=== PATIENT | male | born 1975 | race American Indian/Alaskan Native ===

== ENCOUNTER 2018-06-14 09:02 | Emergency (ER) | payer SELFPAY ==
--- NOTE | 2018-06-14 11:09 | Emergency Department Report ---
ED Male HPI - General Chief complaint: Urogenital-Male Stated complaint: BLOOD IN URINE Time Seen by Provider: 06/14/18 10:40 Source: patient Mode of arrival: Ambulatory Limitations: No Limitations - History of Present Illness Initial comments: 43-year-old obese male with no known past medical history presents to the hospital complaining of blood in his urine since last night.He states that he was drinking alcohol and initially thought maybe he hurt his penis when trying to urinate. He denies any penile playing, abrasions, or bleeding from the penis. He had gross hematuria last night and a little bit this morning however , he states that urinating here he no longer sees blood. He denies flank pain, nausea, vomiting, fever, or dysuria. Patient presents his elevated blood pressure and hasn't seen a primary care doctor in several years. - Related Data Previous Rx's Medication Instructions Recorded Last Taken Type amLODIPine [Norvasc] 10 mg PO DAILY #30 tab 06/14/18 Unknown Rx Allergies Allergy/AdvReac Type Severity Reaction Status Date / Time No Known Allergies Allergy Unverified 06/14/18 09:41 ED Review of Systems ROS: Stated complaint: BLOOD IN URINE Other details as noted in HPI Comment: All other systems reviewed and negative ED Past Medical Hx - Past Medical History Previous Medical History?: No - Surgical History Past Surgical History?: No - Social History Smoking Status: Never Smoker Substance Use Type: Alcohol - Medications Home Medications: Home Medications Medication Instructions Recorded Confirmed Last Taken Type amLODIPine [Norvasc] 10 mg PO DAILY #30 tab 06/14/18 Unknown Rx ED Physical Exam - General Limitations: No Limitations - Other Other exam information: General: No limitations, patient is alert in no acute distress Head exam: Atraumatic, normocephalic Eyes exam: Normal appearance ENT: Moist mucous membrane, normal oropharynx Neck exam: Normal inspection, full range of motion, no meningismus nontender Respiratory exam: Clear to auscultation bilateral, no wheezes, rales, crackles Cardiovascular: Normal rate and rhythm, normal heart sounds Abdomen: Soft, nondistended, and nontender, with normal bowel sounds, no rebound, or guarding : Uncircumcised, no penile or for skin lesions. No blood at the meatus or penile discharge. No scrotal swelling. No testicular or epididymal tenderness Extremity: Full range of motion normal inspection no deformity Back: Normal Inspection, full range of motion, flanks nontender Neurologic: Alert, oriented x3, cranial nerves intact, no motor or sensory deficit Psychiatric: normal affect, normal mood Skin: Warm, dry, intact ED Course Vital Signs 06/14/18 06/14/18 06/14/18 09:41 11:11 11:19 Temperature 98.2 F Pulse Rate 109 H 104 H 104 H Respiratory 20 20 Rate Blood Pressure 171/98 167/103 Blood Pressure 167/103 [Left] O2 Sat by Pulse 99 99 Oximetry 06/14/18 06/14/18 06/14/18 13:52 13:55 14:30 Temperature Pulse Rate 94 H 94 H Respiratory 20 Rate Blood Pressure 175/111 Blood Pressure 175/111 164/106 [Left] O2 Sat by Pulse 99 Oximetry ED Medical Decision Making - Lab Data Result diagrams: 06/14/18 11:17 06/14/18 11:17 Lab Results 06/14/18 06/14/18 06/14/18 Range/Units 09:50 11:17 11:17 WBC 4.4 L (4.5-11.0) K/mm3 RBC 5.10 H (3.65-5.03) M/mm3 Hgb 15.8 H (11.8-15.2) gm/dl Hct 45.6 (35.5-45.6) % MCV 89 (84-94) fl MCH 31 (28-32) pg MCHC 35 H (32-34) % RDW 14.1 (13.2-15.2) % Plt Count 229 (140-440) K/mm3 Lymph % (Auto) 44.8 H (13.4-35.0) % [place] % (Auto) 12.3 H (0.0-7.3) % Eos % (Auto) 1.6 (0.0-4.3) % Baso % (Auto) 0.6 (0.0-1.8) % Lymph # 2.0 (1.2-5.4) K/mm3 [place] # 0.5 (0.0-0.8) K/mm3 Eos # 0.1 (0.0-0.4) K/mm3 Baso # 0.0 (0.0-0.1) K/mm3 Seg Neutrophils % 40.7 (40.0-70.0) % Seg Neutrophils # 1.8 (1.8-7.7) K/mm3 Sodium 141 (137-145) mmol/L Potassium 4.1 (3.6-5.0) mmol/L Chloride 102.5 (98-107) mmol/L Carbon Dioxide 27 (22-30) mmol/L Anion Gap 16 mmol/L BUN 8 L (9-20) mg/dL Creatinine 1.0 (0.8-1.5) mg/dL Estimated GFR > 60 ml/min BUN/Creatinine Ratio 8 % Glucose 125 H (75-100) mg/dL Calcium 8.6 (8.4-10.2) mg/dL Total Bilirubin 0.30 (0.1-1.2) mg/dL AST 31 (5-40) units/L ALT 39 (7-56) units/L Alkaline Phosphatase 69 (35-129) units/L Total Protein 7.1 (6.3-8.2) g/dL Albumin 3.9 (3.9-5) g/dL Albumin/Globulin Ratio 1.2 % Urine Color Yellow (Yellow) Urine Turbidity Clear (Clear) Urine pH 7.0 (5.0-7.0) Ur Specific [place] 1.011 (1.003-1.030) Urine Protein <15 mg/dl (Negative) mg/dL Urine Glucose (UA) Neg (Negative) mg/dL Urine Ketones Neg (Negative) mg/dL Urine Blood Mod (Negative) Urine Nitrite Neg (Negative) Urine Bilirubin Neg (Negative) Urine Urobilinogen < 2.0 (<2.0) mg/dL Ur Leukocyte Esterase Neg (Negative) Urine WBC (Auto) 1.0 (0.0-6.0) /HPF Urine RBC (Auto) 16.0 (0.0-6.0) /HPF U Epithel Cells (Auto) 1.0 (0-13.0) /HPF Urine Bacteria (Auto) 1+ (Negative) /HPF Urine Mucus Few /HPF - Radiology Data Radiology results: report reviewed FINAL REPORT EXAM: CT ABDOMEN PELVIS WO CON HISTORY: hematuria TECHNIQUE: CT examination of the ABDOMEN without IV contrast CT examination of the PELVIS without IV contrast PRIORS: None. FINDINGS: Large body habitus limits the examination. Increased soft tissue attenuates the CT x-ray beam and degrades image quality. Slight cardiomegaly without pericardial effusion. Normal noncontrast appearance of the liver, gallbladder, adrenals, pancreas, and spleen. Normal caliber abdominal aorta and IVC. Normal-appearing kidneys and visible ureteral segments. No evidence of renal calculus or hydronephrosis. No calculus or distention in the visible ureters. Very small fat containing umbilical hernia. No inguinal hernia. No retroperitoneal adenopathy. No evidence of mesenteric mass. Normal-appearing stomach and duodenum. No small bowel distention in the abdomen and pelvis. No pelvic free fluid. Normal-appearing urinary bladder, prostate, seminal vesicles, and rectum. No definite sigmoid colon abnormality. No gross ascites, free air, or colonic distention. Normal-appearing cecum, terminal ileum, and relatively long appendix. IMPRESSION: Slight cardiomegaly No CT evidence of urinary tract calculus or obstruction - Medical Decision Making Gross hematuria complaining Spontaneously improving and currently microscopic No signs of urinary tract infection or renal failure CT abdomen and pelvis unremarkable Urologist follow-up advised Hypertension Newly diagnosed and asymptomatic Still remains high after clonidine 0.1 mg. Additional clonidine 0.1 mg given prior to discharge with some downward trend. He asx so he will be d/jo-ann to start bp med Norvasc will be prescribed PMD follow-up advised - Differential Diagnosis UTI, nephritic syndrome, penile abrasion, bladder cancer, kidney stone Critical Care Time: No Critical care attestation.: If time is entered above; I have spent that time in minutes in the direct care of this critically ill patient, excluding procedure time. ED Disposition Clinical Impression: Hematuria, Hypertension, Obesity Disposition: TO HOME OR SELFCARE Is pt being admited?: No Does the pt Need Aspirin: No Condition: Stable Instructions: How to Take a Blood Pressure (ED), Acute Hematuria (ED), Hypertension (ED) Additional Instructions: Take the medication as prescribed. Follow up with your doctor or the doctor provided. Return if symptoms worsen as indicated by your discharge instructions. You were started on a blood pressure medication. Continue to monitor and record her blood pressure at home. Report these values to your doctor during follow-up visit to determine if medication adjustment is required. Prescriptions: amLODIPine [Norvasc] 10 mg PO DAILY #30 tab Referrals: [facility] [Provider Group] - 3-5 Days (primary care clinic) LETICIA RAMIREZ MD [Staff Physician] - 3-5 Days (primary care doctor) ADELITA CRAWFORD MD [Staff Physician] - 3-5 Days (urologist) Time of Disposition: 15:06
[2018-06-14] MEDS ORDERED: CATAPRES PO ONE ×2 (11:13→13:52)
[2018-06-14 11:16] LABS: Bacteria,Urine 1+ /HPF (Negative); Bilirubin,Urine NEG (Negative); Blood,Urine MOD (Negative); Color,Urine Yellow (Yellow); Mucus,Urine FEW /HPF; Protein,Urine <15 mg/dL mg/dL (Negative); Urobilinogen,Urine < 2.0 mg/dL (<2.0)
[2018-06-14 11:29] LABS: Basophils % (Auto) 0.6 % (0.0-1.8); Eosinophils # (Auto) 0.1 K/mm3 (0.0-0.4); Eosinophils % (Auto) 1.6 % (0.0-4.3); Hematocrit 45.6 % (35.5-45.6); Hemoglobin 15.8 gm/dl (11.8-15.2); Lymphocytes % (Auto) 44.8 % (13.4-35.0); Mean Corpuscular HGB Conc 35 % (32-34); Mean Corpuscular Hemoglobin 31 pg (28-32); Mean Corpuscular Volume 89 fl (84-94); Monocytes # (Auto) 0.5 K/mm3 (0.0-0.8); Monocytes % (Auto) 12.3 % (0.0-7.3); Platelet Count 229 K/mm3 (140-440); Red Cell Distribution Width 14.1 % (13.2-15.2)
[2018-06-14 11:43] LABS: Alanine Aminotransferase 39 units/L (7-56); Albumin 3.9 g/dL (3.9-5); BUN/Creatinine Ratio 8; Blood Urea Nitrogen 8 mg/dL (9-20); Calcium 8.6 mg/dL (8.4-10.2); Hemolysis Index 18
--- NOTE | 2018-06-14 13:41 | Cat Scan Report ---
FINAL REPORT EXAM: CT ABDOMEN PELVIS WO CON HISTORY: hematuria TECHNIQUE: CT examination of the ABDOMEN without IV contrast CT examination of the PELVIS without IV contrast PRIORS: None. FINDINGS: Large body habitus limits the examination. Increased soft tissue attenuates the CT x-ray beam and degrades image quality. Slight cardiomegaly without pericardial effusion. Normal noncontrast appearance of the liver, gallbladder, adrenals, pancreas, and spleen. Normal caliber abdominal aorta and IVC. Normal-appearing kidneys and visible ureteral segments. No evidence of renal calculus or hydronephrosis. No calculus or distention in the visible ureters. Very small fat containing umbilical hernia. No inguinal hernia. No retroperitoneal adenopathy. No evidence of mesenteric mass. Normal-appearing stomach and duodenum. No small bowel distention in the abdomen and pelvis. No pelvic free fluid. Normal-appearing urinary bladder, prostate, seminal vesicles, and rectum. No definite sigmoid colon abnormality. No gross ascites, free air, or colonic distention. Normal-appearing cecum, terminal ileum, and relatively long appendix. IMPRESSION: Slight cardiomegaly No CT evidence of urinary tract calculus or obstruction
[2018-06-14 14:30] VITALS: BP 164/106
== END 2018-06-14 15:20 | disposition home or self-care (01) ==
LOC: ED 09:02
DX: R31.9 Hematuria, unspecified (principal); I10 Essential (primary) hypertension
CPT/HCPCS: 36415; 74176; 80053; 81001; 85025

== ENCOUNTER 2021-07-19 05:07 | Inpatient (IN) | payer SELFPAY ==
--- NOTE | 2021-07-19 06:28 | Emergency Department Report ---
ED Shortness of Breath HPI - General Chief Complaint: Dyspnea/Respdistress Stated Complaint: CHEST PAIN,RICHAR Time Seen by Provider: 07/19/21 06:12 Source: patient Mode of arrival: Wheelchair Limitations: No Limitations - History of Present Illness Initial Comments: Chief complaint: "I'm just exhausted from the medicine that he gave me." HPI: This is a 46-year-old male with history of GERD, CHF, BMI 47, HTN who presents with shortness of breath and feeling "exhausted". Mr. Norotn has had shortness of breath and lower extremity swelling for severa l months. Had not seen a physician until yesterday. He had a first visit with Dr. Jered Mccloud in [place], [place]. Over the last several months he has had intermittent chest pressure mild central without radiation no association with exertion. He was given the diagnoses of heart failure, GERD, HTN, bundle branch block and obesity. He denies fever, headache, cough, chills. He was vaccinated against COVID-19 with 2 doses 2 months ago. Medications new medications prescribed Aspirin 81 mg Metoprolol 100 mg Nitroglycerin Protonix Lasix Complaint: shortness of breath -: month(s) (Several months) Consistency: constant Improves With: rest Worsens With: lying flat, exertion Known History Of: other (New PCP gave diagnosis of congestive heart failure on yesterday) Associated Symptoms: other (Chest pressure lower leg swelling) - Related Data Home Medications Medication Instructions Recorded Confirmed Last Taken Furosemide [Lasix TAB] 40 mg PO BID 07/19/21 07/19/21 Unknown Metoprolol [Lopressor] 100 mg PO DAILY 07/19/21 07/19/21 Unknown Pantoprazole [Protonix] 40 mg PO QDAY 07/19/21 07/19/21 Unknown Potassium Chloride [K-Dur] 40 meq PO BID 07/19/21 07/19/21 Unknown Allergies Allergy/AdvReac Type Severity Reaction Status Date / Time No Known Allergies Allergy Unverified 06/14/18 09:41 ED Review of Systems ROS: Stated complaint: CHEST PAIN,RICHAR Other details as noted in HPI Comment: All other systems reviewed and negative Constitutional: denies: chills, fever, malaise Respiratory: orthopnea, shortness of breath. denies: cough Cardiovascular: chest pain (Chest pressure intermittently over several months) Gastrointestinal: denies: abdominal pain, nausea, vomiting ED Past Medical Hx - Past Medical History Previous Medical History?: Yes Hx Hypertension: Yes Hx Congestive Heart Failure: Yes Hx GERD: Yes Additional medical history: Obesity - Surgical History Past Surgical History?: No - Family History Family history: hypertension - Social History Smoking Status: Never Smoker Substance Use Type: Alcohol - Medications Home Medications: Home Medications Medication Instructions Recorded Confirmed Last Taken Type Furosemide [Lasix TAB] 40 mg PO BID 07/19/21 07/19/21 Unknown History Metoprolol [Lopressor] 100 mg PO DAILY 07/19/21 07/19/21 Unknown History Pantoprazole [Protonix] 40 mg PO QDAY 07/19/21 07/19/21 Unknown History Potassium Chloride [K-Dur] 40 meq PO BID 07/19/21 07/19/21 Unknown History ED Physical Exam - General Limitations: No Limitations General appearance: alert, other (Mild respiratory distress, patient out of breath with full sentences) - Head Head exam: Present: atraumatic, normocephalic - Eye Eye exam: Present: normal appearance - ENT ENT exam: Present: mucous membranes moist - Neck Neck exam: Present: normal inspection, full ROM - Respiratory Respiratory exam: Present: rales, decreased breath sounds. Absent: wheezes, rhonchi - Cardiovascular Cardiovascular Exam: Present: regular rate, normal rhythm, normal heart sounds. Absent: systolic murmur, diastolic murmur, rubs - GI/Abdominal GI/Abdominal exam: Present: soft, normal bowel sounds. Absent: distended, tenderness, guarding, rebound - Rectal Rectal exam: Present: deferred - Extremities Exam Extremities exam: Present: pedal edema, other (2+ pitting edema lower extremities from knee to ankle) - Back Exam Back exam: Present: normal inspection - Neurological Exam Neurological exam: Present: alert, oriented X3 - Psychiatric Psychiatric exam: Present: normal affect, normal mood - Skin Skin exam: Present: warm, dry, intact, normal color. Absent: rash ED Course Vital Signs 07/19/21 07/19/21 07/19/21 05:16 06:16 06:18 Temperature 97.5 F L Pulse Rate 84 88 88 Respiratory 24 17 25 H Rate Blood Pressure 180/116 Blood Pressure 160/112 [Left] O2 Sat by Pulse 100 100 100 Oximetry 07/19/21 07/19/2107/19/21 06:20 06:22 06:23 Temperature Pulse Rate 87 87 87 Respiratory 24 29 H 24 Rate Blood Pressure 180/116 165/122 165/122 Blood Pressure [Left] O2 Sat by Pulse 99 100 100 Oximetry 07/19/21 07/19/21 07/19/21 06:30 07:00 08:00 Temperature 97.7 F Pulse Rate 85 87 Respiratory 17 14 Rate Blood Pressure 151/81 151/117 Blood Pressure [Left] O2 Sat by Pulse 100 99 99 Oximetry 07/19/21 09:00 Temperature Pulse Rate 86 Respiratory 11 L Rate Blood Pressure 160/128 Blood Pressure [Left] O2 Sat by Pulse 95 Oximetry ED Medical Decision Making - Lab Data Result diagrams: 07/19/21 06:54 07/19/21 06:54 Laboratory Results - last 24 hr 07/19/21 07/19/21 07/19/21 06:54 06:54 06:54 WBC 6.9 RBC 5.53 H Hgb 16.8 H Hct 50.0 H MCV 91 MCH 30 MCHC 34 RDW 14.6 Plt Count 258 Baso % (Auto) Business Intelligence Administrator Add Manual Diff Complete Total Counted 100 Seg Neuts % (Manual) 77.0 H Lymphocytes % (Manual) 14.0 Reactive Lymphs % (Man) 4.0 Monocytes % (Manual) 5.0 Nucleated RBC % Not Reportable Seg Neutrophils # Man 5.3 Band Neutrophils # 0.0 Lymphocytes # (Manual) 1.0 L Abs React Lymphs (Man) 0.3 Monocytes # (Manual) 0.3 Eosinophils # (Manual) 0.0 Basophils # (Manual) 0.0 Metamyelocytes # 0.0 Myelocytes # 0.0 Promyelocytes # 0.0 Blast Cells # 0.0 WBC Morphology Not Reportable Hypersegmented Neuts Not Reportable Hyposegmented Neuts Not Reportable Hypogranular Neuts Not Reportable Smudge Cells Not Reportable Toxic Granulation Not Reportable Toxic Vacuolation Not Reportable Dohle Bodies Not Reportable Pelger-Huet Anomaly Not Reportable [place] Rods Not Reportable Platelet Estimate Consistent w auto Clumped Platelets Not Reportable Plt Clumps, EDTA Not Reportable Large Platelets Not Reportable Giant Platelets Not Reportable Platelet Satelliting Not Reportable Plt Morphology Comment Not Reportable RBC Morphology Not Reportable Dimorphic RBCs Not Reportable Polychromasia Not Reportable Hypochromasia Not Reportable Poikilocytosis Not Reportable Anisocytosis Not Reportable Microcytosis Not Reportable Macrocytosis Not Reportable Spherocytes Rare Pappenheimer Bodies Not Reportable Sickle Cells Not Reportable Target Cells Not Reportable Tear Drop Cells Not Reportable Ovalocytes Not Reportable Helmet Cells Not Reportable [place] Bodies Not Reportable [place] Rings Not Reportable Breezy Cells Not Reportable Bite Cells Not Reportable Crenated Cell Not Reportable Elliptocytes Not Reportable Acanthocytes (Spur) Not Reportable Rouleaux Not Reportable Hemoglobin C Crystals Not Reportable Schistocytes Not Reportable Malaria parasites Not Reportable Raul Bodies Not Reportable Hem Pathologist Commnt No Sodium 130 L Potassium 5.4 H Chloride 92.8 L Carbon Dioxide 24 Anion Gap 19 BUN 24 H Creatinine 1.7 H Estimated GFR 52 BUN/Creatinine Ratio 14 Glucose 145 H Calcium 9.2 Total Bilirubin 2.70 H AST 98 H ALT 94 H Alkaline Phosphatase 121 Troponin T < 0.010 NT-Pro-B Natriuret Pep 7537 H Total Protein 7.8 Albumin 4.2 Albumin/Globulin Ratio 1.2 - EKG Data -: EKG Interpreted by Ar EKG shows normal: sinus rhythm, axis Rate: normal - EKG Data Interpretation: nonspecific ST-T wave adelina 07/19/21 06:27 EKG obtained 524 EKG interpreted by hi Normal sinus rhythm rate 85 bpm normal axis enlarged P waves in inferior leads nonspecific T wave abnormality no ST elevation - Radiology Data Radiology results: report reviewed Patient Name: OSIEL NORTON Gender: Male Date of : 1975 Referring Provider: BOSSMAN WHITTINGTON Organization: [facility] Accession Number: [id number] Requested Date: July 19, 2021 06:20 Report Status: Final Requested Procedure: 1 Procedure Description: XR chest 1V ap Modality: XR Findings Reporting MD: Stephan Stark Dictation Time: July 19, 2021 07:08 Machine Maintenance Supervisor: Not available Latex Dipper Date: CHEST 1 VIEW INDICATION: Dyspnea. COMPARISON: None FINDINGS: Support devices: None. Heart: Mild cardiomegaly Lungs/Pleura: Mild central pulmonary congestion and small left pleural effusion. No infiltrate or pneumothorax. Additional findings: None. IMPRESSION: Mild CHF versus volume overload. Signer Name: Stephan Stark Jr, MD Signed: 07/19/2021 7:08 AM Workstation Name: [id number] - Medical Decision Making 1. New onset CHF: X-ray notable for pulmonary edema with pleural effusion, BNP markedly elevated, troponin normal, decreased kidney function. IV furosemide given emergency department. 2. [place]: Suspect vasomotor nephropathy with recent use furosemide, patient will need supervised monitor diuresis 3. Abnormal liver function tests suspect fatty liver disease versus alcohol liver disease, patient recently stopped drinking alcohol 4. Severe obesity: BMI 47, patient is currently 319 pounds. He explained that he weighed 185 pounds in high school. Provided education regarding lifestyle modification. Patient is admitted to the hospital service. Critical care attestation.: If time is entered above; I have spent that time in minutes in the direct care of this critically ill patient, excluding procedure time. ED Disposition Clinical Impression: New onset of congestive heart failure, Acute kidney injury, Abnormal liver function test, Severe obesity Disposition: ADMITTED INPATIENT Is pt being admited?: Yes Does the pt Need Aspirin: No Condition: Fair
[2021-07-19 07:11] LABS: Hemoglobin 16.8 gm/dl (11.8-15.2); Mean Corpuscular HGB Conc 34 % (32-34); Mean Corpuscular Volume 91 fl (84-94); Platelet Count 258 K/mm3 (140-440); Red Blood Count 5.53 M/mm3 (3.65-5.03); Red Cell Distribution Width 14.6 % (13.2-15.2)
[2021-07-19 07:31] LABS: Alanine Aminotransferase 94 units/L (7-56); Albumin 4.2 g/dL (3.9-5); BUN/Creatinine Ratio 14; Blood Urea Nitrogen 24 mg/dL (9-20); Calcium 9.2 mg/dL (8.4-10.2); Hemolysis Index 54
[2021-07-19 08:12] LABS: Total Cells Counted 100
--- NOTE | 2021-07-19 08:12 | XRay Report ---
CHEST 1 VIEW INDICATION: Dyspnea. COMPARISON: None FINDINGS: Support devices: None. Heart: Mild cardiomegaly Lungs/Pleura: Mild central pulmonary congestion and small left pleural effusion. No infiltrate or pne umothorax. Additional findings: None. IMPRESSION: Mild CHF versus volume overload. Signer Name: Stephan Stark Jr, MD Signed: 07/19/2021 8:08 AM Workstation Name: [id number]
[2021-07-19 08:13] LABS: Platelet Estimate Consistent w Auto; Spherocytes Rare
[2021-07-19] MEDS ORDERED: FUROSEMIDE 40 MG/4 ML INJ IV ONE (09:51)
[2021-07-19] MEDS ORDERED: DEXTROSE 50% IN WATER (25GM) 50 ML SYRINGE IV PRN (10:00)
--- NOTE | 2021-07-19 10:01 | History and Physical Report ---
History of Present Illness Date of examination: 07/19/21 Date of admission: 07/19/21 Chief complaint: SHORTNESS OF BREATH History of present illness: Patient is a 46-year-old male with past medical history of GERD recently diagnosed CHF hypertension morbid obesity with BMI of 47.3. The patient reports that he has in the last 2 months quit alcohol use which he drank heavily in the past but never required hospitalization or had any seizure-like activity. In the last 2 months also he has noted worsening shortness of breath with exertion. [place] a local [place] all around the country. He presents to the ED with worsening shortness of breath he was recently seen by a physician Dr. Jered Mccloud in [facility] where and was started on medications listed below. He denies any nausea vomiting or diarrhea he denies any fever. He reports that he was vaccinated against COVID-19 with 2 doses 2 months ago. Medications new medications prescribed Aspirin 81 mg Metoprolol 100 mg Nitroglycerin Protonix Lasix Past History Past Medical History: hypertension, hyperlipidemia, other (Morbid obesity possible AARON) Past Surgical History: No surgical history, Other Social history: no significant social history, full code. denies: smoking, alcohol abuse (Recently quit) Family history: no significant family history Medications and Allergies Allergies Allergy/AdvReac Type Severity Reaction Status Date / Time No Known Allergies Allergy Unverified 06/14/18 09:41 Home Medications Medication Instructions Recorded Confirmed Last Taken Type Furosemide [Lasix TAB] 40 mg PO BID 07/19/21 07/19/21 Unknown History Metoprolol [Lopressor] 100 mg PO DAILY 07/19/21 07/19/21 Unknown History Pantoprazole [Protonix] 40 mg PO QDAY 07/19/21 07/19/21 Unknown History Potassium Chloride [K-Dur] 40 meq PO BID 07/19/21 07/19/21 Unknown History Active Meds: Active Medications Acetaminophen (Acetaminophen 325 Mg Tab) 650 mg PO Q4H PRN PRN Reason: Pain MILD(1-3)/Fever >100.5/RUIZ Albuterol (Albuterol 2.5 Mg/3 Ml Nebu) 2.5 mg IH Q3HRT PRN PRN Reason: Shortness Of Breath Dextrose (Dextrose 50% In Water (25gm) 50 Ml Syringe) 50 ml IV Q30MIN PRN; Protocol PRN Reason: Hypoglycemia Furosemide (Furosemide 40 Mg/4 Ml Inj) 40 mg IV QDAY [facility] Insulin Human Lispro (Insulin Lispro 100 Unit/Ml) 0 unit SUB-Q ACHS [facility]; Protocol Naloxone HCl (Naloxone 0.4 Mg/1 Ml Inj) 0.1 mg IV Q2MIN PRN PRN Reason: Res Rate </= 8 or 02 SAT < 92% Ondansetron HCl (Ondansetron 4 Mg/2 Ml Inj) 4 mg IV Q8H PRN PRN Reason: Nausea And Vomiting Oxycodone/Acetaminophen (Oxycodone /Acetaminophen 5-325mg Tab) 1 tab PO Q6H PRN PRN Reason: Pain, Moderate (4-6) Sodium Chloride (Sodium Chloride 0.9% 10 Ml Flush Syringe) 10 ml IV BID [facility] Sodium Chloride (Sodium Chloride 0.9% 10 Ml Flush Syringe) 10 ml IV PRN PRN PRN Reason: LINE FLUSH Review of Systems Constitutional: weight gain, fatigue, weakness, no fever, no chills, no sweats, no night sweats, no malaise, no lethargy, no chronic headaches Cardiovascular: edema, shortness of breath, dyspnea on exertion, no chest pain, no orthopnea, no lightheadedness, no paroxysmal nocturnal dyspnea Respiratory: shortness of breath, dyspnea on exertion, congestion, no cough, no cough with sputum, no excessive sputum, no hemoptysis Gastrointestinal: no nausea, no diarrhea, no constipation, no change in bowel habits, no melena, no early satiety, no heartburn, no dyspepsia/bloating Musculoskeletal: no neck pain, no low back pain, no leg numbness/tingling, no morning stiffness, no limitation of motion Integumentary: no pruritis, no sores, no jaundice, no acne, no color changes, no striae, no foot/leg ulcers Neurological: no paralysis, no parathesias, no seizures, no migraines, no change in speech, no loss of vision, no burning pain Psychiatric: no memory loss, no insomnia, no suicidal ideation, no anxiety attacks Exam - Physical Exam Narrative exam: VITAL SIGNS: Reviewed. GENERAL: The patient appears normally developed, morbidly obese mild respiratory distress vital signs as documented. HEAD: No signs of head trauma. EYES: Pupils are equal. Extraocular motions intact. EARS: Hearing grossly intact. MOUTH: Oropharynx is normal. NECK: No adenopathy, no JVD. CHEST: Chest with diminished breath sounds bilaterally. No wheezes, rales, or rhonchi. CARDIAC: Regular rate and rhythm. S1 and S2, without murmurs, gallops, or rubs. VASCULAR: No Edema. Peripheral pulses normal and equal in all extremities. ABDOMEN: Large pannus soft, non tender and non distended. No rebound or guarding, and no masses palpated. Bowel Sounds normal. MUSCULOSKELETAL: Good range of motion of all major joints. Extremities without clubbing, cyanosis. +2 pitting edema. NEUROLOGIC EXAM: Alert and oriented x 3 No focal sensory or strength deficits. Speech normal. Follows commands. PSYCHIATRIC: Mood normal. SKIN: detail exam as documented in skin assessment - Constitutional Vitals: Temp Pulse Resp BP Pulse Ox 97.7 F 86 11 L 160/128 95 07/19/21 07:00 07/19/21 09:00 07/19/21 09:00 07/19/21 09:00 07/19/21 09:00 HEART Score - HEART Score Troponin: Troponin T < 0.010 ng/mL (0.00-0.029) 07/19/21 06:54 Results - Labs CBC & Chem 7: 07/19/21 06:54 07/19/21 06:54 Labs: Laboratory Last Values WBC 6.9 K/mm3 (4.5-11.0) 07/19/21 06:54 RBC 5.53 M/mm3 (3.65-5.03) H 07/19/21 06:54 Hgb 16.8 gm/dl (11.8-15.2) H 07/19/21 06:54 Hct 50.0 % (35.5-45.6) H 07/19/21 06:54 MCV 91 fl (84-94) 07/19/21 06:54 MCH 30 pg (28-32) 07/19/21 06:54 MCHC 34 % (32-34) 07/19/21 06:54 RDW 14.6 % (13.2-15.2) 07/19/21 06:54 Plt Count 258 K/mm3 (140-440) 07/19/21 06:54 Baso % (Auto) Collar Cutter 07/19/21 06:54 Add Manual Diff Complete 07/19/21 06:54 Total Counted 100 07/19/21 06:54 Seg Neuts % (Manual) 77.0 % (40.0-70.0) H 07/19/21 06:54 Lymphocytes % (Manual) 14.0 % (13.4-35.0) 07/19/21 06:54 Reactive Lymphs % (Man) 4.0 % 07/19/21 06:54 Monocytes % (Manual) 5.0 % (0.0-7.3) 07/19/21 06:54 Nucleated RBC % Not Reportable 07/19/21 06:54 Seg Neutrophils # Man 5.3 K/mm3 (1.8-7.7) 07/19/21 06:54 Band Neutrophils # 0.0 K/mm3 07/19/21 06:54 Lymphocytes # (Manual) 1.0 K/mm3 (1.2-5.4) L 07/19/21 06:54 Abs React Lymphs (Man) 0.3 K/mm3 07/19/21 06:54 Monocytes # (Manual) 0.3 K/mm3 (0.0-0.8) 07/19/21 06:54 Eosinophils # (Manual) 0.0 K/mm3 (0.0-0.4) 07/19/21 06:54 Basophils # (Manual) 0.0 K/mm3 (0.0-0.1) 07/19/21 06:54 Metamyelocytes # 0.0 K/mm3 07/19/21 06:54 Myelocytes # 0.0 K/mm3 07/19/21 06:54 Promyelocytes # 0.0 K/mm3 07/19/21 06:54 Blast Cells # 0.0 K/mm3 07/19/21 06:54 WBC Morphology Not Reportable 07/19/21 06:54 Hypersegmented Neuts Not Reportable 07/19/21 06:54 Hyposegmented Neuts Not Reportable 07/19/21 06:54 Hypogranular Neuts Not Reportable 07/19/21 06:54 Smudge Cells Not Reportable 07/19/21 06:54 Toxic Granulation Not Reportable 07/19/21 06:54 Toxic Vacuolation Not Reportable 07/19/21 06:54 Dohle Bodies Not Reportable 07/19/21 06:54 Pelger-Huet Anomaly Not Reportable 07/19/21 06:54 Letitia Rods Not Reportable 07/19/21 06:54 Platelet Estimate Consistent w auto 07/19/21 06:54 Clumped Platelets Not Reportable 07/19/21 06:54 Plt Clumps, EDTA Not Reportable 07/19/21 06:54 Large Platelets Not Reportable 07/19/21 06:54 Giant Platelets Not Reportable 07/19/21 06:54 Platelet Satelliting Not Reportable 07/19/21 06:54 Plt Morphology Comment Not Reportable 07/19/21 06:54 RBC Morphology Not Reportable 07/19/21 06:54 Dimorphic RBCs Not Reportable 07/19/21 06:54 Polychromasia Not Reportable 07/19/21 06:54 Hypochromasia Not Reportable 07/19/21 06:54 Poikilocytosis Not Reportable 07/19/21 06:54 Anisocytosis Not Reportable 07/19/21 06:54 Microcytosis Not Reportable 07/19/21 06:54 Macrocytosis Not Reportable 07/19/21 06:54 Spherocytes Rare 07/19/21 06:54 Pappenheimer Bodies Not Reportable 07/19/21 06:54 Sickle Cells Not Reportable 07/19/21 06:54 Target Cells Not Reportable 07/19/21 06:54 Tear Drop Cells Not Reportable 07/19/21 06:54 Ovalocytes Not Reportable 07/19/21 06:54 Helmet Cells Not Reportable 07/19/21 06:54 Morales-Birdseye Bodies Not Reportable 07/19/21 06:54 Cache Rings Not Reportable 07/19/21 06:54 Burnet Cells Not Reportable 07/19/21 06:54 Bite Cells Not Reportable 07/19/21 06:54 Crenated Cell Not Reportable 07/19/21 06:54 Elliptocytes Not Reportable 07/19/21 06:54 Acanthocytes (Spur) Not Reportable 07/19/21 06:54 Rouleaux Not Reportable 07/19/21 06:54 Hemoglobin C Crystals Not Reportable 07/19/21 06:54 Schistocytes Not Reportable 07/19/21 06:54 Malaria parasites Not Reportable 07/19/21 06:54 Raul Bodies Not Reportable 07/19/21 06:54 Hem Pathologist Commnt No 07/19/21 06:54 Sodium 130 mmol/L (137-145) L 07/19/21 06:54 Potassium 5.4 mmol/L (3.6-5.0) H 07/19/21 06:54 Chloride 92.8 mmol/L (98-107) L 07/19/21 06:54 Carbon Dioxide 24 mmol/L (22-30) 07/19/21 06:54 Anion Gap 19 mmol/L 07/19/21 06:54 BUN 24 mg/dL (9-20) H 07/19/21 06:54 Creatinine 1.7 mg/dL (0.8-1.3) H 07/19/21 06:54 Estimated GFR 52 ml/min 07/19/21 06:54 BUN/Creatinine Ratio 14 % 07/19/21 06:54 Glucose 145 mg/dL (75-100) H 07/19/21 06:54 Calcium 9.2 mg/dL (8.4-10.2) 07/19/21 06:54 Total Bilirubin 2.70 mg/dL (0.1-1.2) H 07/19/21 06:54 AST 98 units/L (5-40) H 07/19/21 06:54 ALT 94 units/L (7-56) H 07/19/21 06:54 Alkaline Phosphatase 121 units/L (35-129) 07/19/21 06:54 Troponin T < 0.010 ng/mL (0.00-0.029) 07/19/21 06:54 NT-Pro-B Natriuret Pep 7537 pg/mL (0-450) H 07/19/21 06:54 Total Protein 7.8 g/dL (6.3-8.2) 07/19/21 06:54 Albumin 4.2 g/dL (3.9-5) 07/19/21 06:54 Albumin/Globulin Ratio 1.2 % 07/19/21 06:54 Assessment and Plan Assessment and plan: Patient is a 46-year-old male with past medical history of GERD recently diagnosed CHF hypertension morbid obesity with BMI of 47.3. The patient reports that he has in the last 2 months quit alcohol use which he drank heavily in the past but never required hospitalization or had any seizure-like activity. In the last 2 months also he has noted worsening shortness of breath with exertion. [place] a local [place] and [place] all [place] country. He presents to the ED with worsening shortness of breath he was recently seen by a physician Dr. Jered Mccloud in [facility] where and was started on medications listed below. He denies any nausea vomiting or diarrhea he denies any fever. He reports that he was vaccinated against COVID-19 with 2 doses 2 months ago. 1. New onset CHF: We will admit patient to telemetry. Cardiology consult. Coleen joelle weights. Start on Lasix resume patient's home beta-gay . X-ray notable for pulmonary edema with pleural effusion, BNP markedly elevated, troponin normal, decreased kidney function. IV furosemide given emergency department. 2. KOLTON: Suspect vasomotor nephropathy with recent use furosemide, patient will need supervised monitor diuresis, obtain nephrology eval, further work up per them 3. Abnormal liver function: tests suspect fatty liver disease versus alcohol liver disease, patient recently stopped drinking alcohol. We will continue to monitor closely. Monitor for withdrawal symptoms 4. Hyperkalemia: We will give a dose of Kayexalate. Patient was on potassium outpatient we will discontinue this. Anticipate that this will also correct and may be become hypokalemic with Lasix but will monitor closely. 5. Hyponatremia: 6. severe obesity: BMI 47, patient is currently 319 pounds. He explained that he weighed 185 pounds in high school. Provided education regarding lifestyle modification. Extensive counseling provided to the patient he verbalized understanding Advance Directives: Yes Plan of care discussed with patient/family: Yes
[2021-07-19] MEDS ORDERED: ACETAMINOPHEN 325 MG TAB PO PRN (10:30)
[2021-07-19] MEDS ORDERED: NALOXONE 0.4 MG/1 ML INJ IV PRN (10:30)
[2021-07-19] MEDS ORDERED: oxyCODONE /ACETAMINOPHEN 5-325MG TAB PO PRN (11:00)
[2021-07-19] MEDS ORDERED: ALBUTEROL 2.5 MG/3 ML NEBU IH PRN (11:00)
[2021-07-19] MEDS ORDERED: ONDANSETRON 4 MG/2 ML INJ IV PRN (11:00)
[2021-07-19] MEDS: INSULIN LISPRO 100 UNIT/ML SUB-Q SCH ×3 (11:20→23:01)
[2021-07-19 11:42] LABS: Chol/HDL Ratio 4.97 %
--- NOTE | 2021-07-19 15:48 | Consultation ---
History of Present Illness - Reason for Consult Consult date: 07/19/21 acute renal failure - History of Present Illness Patient is a 46 YO male with history significant for Morbid Obesity, HTN, GERD and recent CHF diagnosis who presented to [facility] ED 07/19 with worsening shortness of breath with exertion for the past 2 months. Patient is a very vagu historian. He was recently seen by Dr. Jered Mccloud in [facility] where and was started on Aspirin 81 mg, Metoprolol 100 mg, Nitroglycerin, Protonix and Lasix. Also admits worsening b/l leg swelling for the past 2 months. He denies any nausea, vomiting, diarrhea, abd pain, cough or syncope. He reports that he was vaccinated against COVID-19 with 2 doses 2 months ago. The patient reports that he has in the last 2 months quit alcohol use which he drank heavily in the past but never required hospitalization or had any seizure-like activity. CXR showed mild CHF. Labs significant for Creat 1.7, BUN 24, K 5.4, Sodium 130 and elevated BNP. Nephrology was consulted for further evaluation and treatment of KOLTON. Past History Past Medical History: heart failure, hypertension, hyperlipidemia, other (Morbid obesity possible AARON) Past Surgical History: No surgical history, Other Social history: no significant social history, full code. denies: smoking, alcohol abuse (Recently quit) Family history: no significant family history Medications and Allergies Allergies Allergy/AdvReac Type Severity Reaction Status Date / Time No Known Allergies Allergy Unverified 06/14/18 09:41 Home Medications Medication Instructions Recorded Confirmed Last Taken Type Furosemide [Lasix TAB] 40 mg PO BID 07/19/21 07/19/21 Unknown History Metoprolol [Lopressor] 100 mg PO DAILY 07/19/21 07/19/21 Unknown History Pantoprazole [Protonix] 40 mg PO QDAY 07/19/21 07/19/21 Unknown History Potassium Chloride [K-Dur] 40 meq PO BID 07/19/21 07/19/21 Unknown History Active Meds: Active Medications Acetaminophen (Acetaminophen 325 Mg Tab) 650 mg PO Q4H PRN PRN Reason: Pain MILD(1-3)/Fever >100.5/RUIZ Albuterol (Albuterol 2.5 Mg/3 Ml Nebu) 2.5 mg IH Q3HRT PRN PRN Reason: Shortness Of Breath Dextrose (Dextrose 50% In Water (25gm) 50 Ml Syringe) 50 ml IV Q30MIN PRN; Protocol PRN Reason: Hypoglycemia Furosemide (Furosemide 40 Mg/4 Ml Inj) 40 mg IV QDAY [facility] Hydralazine HCl (Hydralazine 20 Mg/1 Ml Inj) 10 mg IV Q4HR PRN PRN Reason: Hypertension Insulin Human Lispro (Insulin Lispro 100 Unit/Ml) 0 unit SUB-Q ACHS [facility]; Protocol Last Admin: 07/19/21 11:20 Dose: 1 unit Documented by: Metoprolol Tartrate (Metoprolol Tartrate 100 Mg Tab) 100 mg PO DAILY [facility] Naloxone HCl (Naloxone 0.4 Mg/1 Ml Inj) 0.1 mg IV Q2MIN PRN PRN Reason: Res Rate </= 8 or 02 SAT < 92% Ondansetron HCl (Ondansetron 4 Mg/2 Ml Inj) 4 mg IV Q8H PRN PRN Reason: Nausea And Vomiting Oxycodone/Acetaminophen (Oxycodone /Acetaminophen 5-325mg Tab) 1 tab PO Q6H PRN PRN Reason: Pain, Moderate (4-6) Pantoprazole Sodium (Pantoprazole 40 Mg Tab) 40 mg PO QDAY [facility] Sodium Chloride (Sodium Chloride 0.9% 10 Ml Flush Syringe) 10 ml IV BID [facility] Last Admin: 07/19/21 10:18 Dose: 10 ml Documented by: Sodium Chloride (Sodium Chloride 0.9% 10 Ml Flush Syringe) 10 ml IV PRN PRN PRN Reason: LINE FLUSH Review of Systems Constitutional: weight gain, no weight loss, no fever, no chills, no anorexia, no fatigue, no weakness Cardiovascular: orthopnea, edema, shortness of breath, dyspnea on exertion, high blood pressure, leg edema, decreased exercise tolerance, no chest pain, no syncope, no lightheadedness Respiratory: shortness of breath, dyspnea on exertion, no cough, no hemoptysis Gastrointestinal: no abdominal pain, no nausea, no vomiting, no diarrhea, no melena Genitourinary Male: no dysuria, no hematuria Integumentary: no jaundice Neurological: no syncope, no aphasia, no change in speech, no change in mentation, no confusion Exam - Vital Signs Vital signs: Vital Signs Temp Pulse Resp BP Pulse Ox 97.5 F L 84 24 160/112 100 09/29/21 05:16 07/19/21 05:16 07/19/21 05:16 07/19/21 05:16 07/19/21 05:16 Results - Lab Results 07/19/21 06:54 07/19/21 06:54 Most recent lab results Calcium 9.2 mg/dL (8.4-10.2) 07/19/21 06:54 Assessment and Plan 1. Acute kidney injury: KOLTON in the setting of decompensated CHF. Urine studies and Renal US ordered. Recurrent KOLTON. Monitor renal function. Creatinine level is same as yesterday. Avoid nephrotoxic agents. Meds dosage based on GFR. 2. FEN: Hyperkalemia, monitor. Hyponatremia, in the setting of CHF, monitor. Volume overload, diuretics, monitor. Monitor lytes and volume status. 3. New onset CHF: Admit to telemetry. Cardiology consult. Daily weights, strict I/O. IV Lasix and home beta-gay. 4. Abnormal liver function: 2/2 fatty liver disease vs alcohol liver disease. Monitor. 5. Class 3 obesity: BMI 47, patient is currently 319 pounds. 6. Elevated bl glu: A1C ordered. Subjective: Patient was seen and examined at the bedside. Examination: General appearance: well-developed, appears stated age, obese, on RA HEENT: atraumatic Neck: trachea midline Respiratory: diminished breath sounds Heart: S1S2, regular, no murmur Abdomen: soft, obese, bowel sounds heard, NT Integumentary: no rash Neurologic: AO, non-focal Ext: 2+ LE edema with weeping
--- NOTE | 2021-07-19 16:05 | Consultation ---
History of Present Illness Consult date: 07/19/21 Requesting physician: CATHRYN MAYES Consult reason: congestive heart failure History of present illness: Patient is 46y/o male with a PMHx of HTN and obesity who presented to the ED with a complaint of dehydration and SOB x 1 day. The patient reports that over the last 2 months he has had an increase in SOB, SALDIVAR, orthopnea, and BLE edema. The patient states that yesterday he went to a PCP where he was diagnosed with HTN and given medications. The patient states that the medications made him dehydrated and sweat a lot so he came in to the ED. The medications he reports he started are Aspirin 81 mg, Metoprolol 100 mg, Nitroglycerin, Protonix, Lasix. He states he has never been told he had heart failure or a weak heart. In the last two months says he stopped drinking ETOH(he reports previously being a heavy drinker) and trying to improve his diet. He denies chest pain, palpitations, nausea or vomiting. ED work up shows BNP 7537, CXR shows pulmonary congestion, trop negx1. Cardiology is consulted for CHF. Patient is previously unknown to our practice. Past History Past Medical History: heart failure, hypertension, hyperlipidemia, other (Morbid obesity possible AARON) Past Surgical History: No surgical history, Other Social history: no significant social history, full code. denies: smoking, alcohol abuse (Recently quit) Family history: no significant family history Medications and Allergies Allergies Allergy/AdvReac Type Severity Reaction Status Date / Time No Known Allergies Allergy Unverified 06/14/18 09:41 Home Medications Medication Instructions Recorded Confirmed Last Taken Type Furosemide [Lasix TAB] 40 mg PO BID 07/19/21 07/19/21 Unknown History Metoprolol [Lopressor] 100 mg PO DAILY 07/19/21 07/19/21 Unknown History Pantoprazole [Protonix] 40 mg PO QDAY 07/19/21 07/19/21 Unknown History Potassium Chloride [K-Dur] 40 meq PO BID 07/19/21 07/19/21 Unknown History Active Meds: Active Medications Acetaminophen (Acetaminophen 325 Mg Tab) 650 mg PO Q4H PRN PRN Reason: Pain MILD(1-3)/Fever >100.5/RUIZ Albuterol (Albuterol 2.5 Mg/3 Ml Nebu) 2.5 mg IH Q3HRT PRN PRN Reason: Shortness Of Breath Dextrose (Dextrose 50% In Water (25gm) 50 Ml Syringe) 50 ml IV Q30MIN PRN; Protocol PRN Reason: Hypoglycemia Furosemide (Furosemide 40 Mg/4 Ml Inj) 40 mg IV QDAY [facility] Hydralazine HCl (Hydralazine 20 Mg/1 Ml Inj) 10 mg IV Q4HR PRN PRN Reason: Hypertension Insulin Human Lispro (Insulin Lispro 100 Unit/Ml) 0 unit SUB-Q ACHS [facility]; Protocol Last Admin: 07/19/21 11:20 Dose: 1 unit Documented by: Metoprolol Tartrate (Metoprolol Tartrate 100 Mg Tab) 100 mg PO DAILY [facility] Naloxone HCl (Naloxone 0.4 Mg/1 Ml Inj) 0.1 mg IV Q2MIN PRN PRN Reason: Res Rate </= 8 or 02 SAT < 92% Ondansetron HCl (Ondansetron 4 Mg/2 Ml Inj) 4 mg IV Q8H PRN PRN Reason: Nausea And Vomiting Oxycodone/Acetaminophen (Oxycodone /Acetaminophen 5-325mg Tab) 1 tab PO Q6H PRN PRN Reason: Pain, Moderate (4-6) Pantoprazole Sodium (Pantoprazole 40 Mg Tab) 40 mg PO QDAY [facility] Sodium Chloride (Sodium Chloride 0.9% 10 Ml Flush Syringe) 10 ml IV BID [facility] Last Admin: 07/19/21 10:18 Dose: 10 ml Documented by: Sodium Chloride (Sodium Chloride 0.9% 10 Ml Flush Syringe) 10 ml IV PRN PRN PRN Reason: LINE FLUSH Review of Systems All systems: negative Constitutional: fatigue, no weight loss, no weight gain Ears, nose, mouth and throat: no nasal congestion, no nasal discharge, no sinus pressure, no sinus pain Cardiovascular: orthopnea, edema, shortness of breath, dyspnea on exertion, high blood pressure, no chest pain, no palpitations, no rapid/irregular heart beat Respiratory: shortness of breath, dyspnea on exertion, no cough, no cough with sputum, no excessive sputum Gastrointestinal: no abdominal pain, no nausea, no vomiting, no diarrhea Musculoskeletal: no neck stiffness, no neck pain, no shooting arm pain Integumentary: no rash, no pruritis, no redness Neurological: no head injury, no transient paralysis, no paralysis, no weakness Psychiatric: no anxiety, no memory loss Endocrine: no cold intolerance, no heat intolerance Hematologic/Lymphatic: no easy bruising, no easy bleeding Physical Examination Vital Signs Temp Pulse Resp BP Pulse Ox 97.5 F L 84 24 160/112 100 07/19/21 05:16 07/19/21 05:16 07/19/21 05:16 07/19/21 05:16 07/19/21 05:16 General appearance: no acute distress HEENT: Positive: PERRL Neck: Positive: neck supple, trachea midline Cardiac: Positive: Reg Rate and Rhythm Lungs: Positive: Decreased Breath Sounds Neuro: Positive: Grossly Intact Abdomen: Positive: Soft, Active Bowel Sounds Skin: Negative: Rash, Suspicious Lesions, Ulceration Extremities: Present: upper extr. pulses, lower extr. pulses, +2 Edema Results 07/19/21 06:54 07/19/21 06:54 Cardiac Enzymes 07/19/21 Range/Units 06:54 AST 98 H (5-40) units/L Lipids 07/19/21 Range/Units 10:21 Triglycerides 94 (2-149) mg/dL Cholesterol 209 H (50-199) mg/dL HDL Cholesterol 42 (40-59) mg/dL Cholesterol/HDL Ratio 4.97 % CBC 07/19/21 Range/Units 06:54 WBC 6.9 (4.5-11.0) K/mm3 RBC 5.53 H (3.65-5.03) M/mm3 Hgb 16.8 H (11.8-15.2) gm/dl Hct 50.0 H (35.5-45.6) % Plt Count 258 (140-440) K/mm3 Comprehensive Metabolic Panel 07/19/21 Range/Units 06:54 Sodium 130 L (137-145) mmol/L Potassium 5.4 H (3.6-5.0) mmol/L Chloride 92.8 L (98-107) mmol/L Carbon Dioxide 24 (22-30) mmol/L BUN 24 H (9-20) mg/dL Creatinine 1.7 H (0.8-1.3) mg/dL Glucose 145 H (75-100) mg/dL Calcium 9.2 (8.4-10.2) mg/dL AST 98 H (5-40) units/L ALT 94 H (7-56) units/L Alkaline Phosphatase 121 (35-129) units/L Total Protein 7.8 (6.3-8.2) g/dL Albumin 4.2 (3.9-5) g/dL - Imaging and Cardiology Echo: pending EKG: report reviewed, image reviewed EKG interpretations - Telemetry EKG Rhythm: Sinus Rhythm - EKG Sinus rhythms and dysrhythmias: sinus rhythm Assessment and Plan Patient is 46y/o male with a PMHx of HTN and obesity CHF HTN * EKG shows sinus rhythm 85 with no acute ischemic changes, trops neg, no chest pain * BNP noted to be elevated 7537, CXR shows pulmonary congestion, patient endorses orthopnea SOB, and has BLE +2-3. Echo pending * Agree with metoprolol 100mg QD. Will hold LULÚ/ARB in setting of KOLTON until ok per nephrology KOLTON * Nephrology consulted Hyperkalemia * Management per primary team Plan: Patient signs and symptoms consistent with CHF. Echo pending. Agree with metoprolol and Lasix. Will hold LULÚ/ARB in setting of KOLTON and until ok per nephrology. May consider ischemic eval once BP stable. Discussed importance of diet and lifestyle modifications with patient. - Patient Problems (1) HTN (hypertension) Current Visit: Yes Status: Acute (2) Abnormal liver function test Current Visit: Yes Status: Acute (3) Acute kidney injury Current Visit: Yes Status: Acute (4) New onset of congestive heart failure Current Visit: Yes Status: Acute (5) Severe obesity Current Visit: Yes Status: Acute
[2021-07-19 20:48] LABS: Bilirubin,Urine NEG (Negative); Blood,Urine NEG (Negative); Color,Urine Straw (Yellow); Protein,Urine <15 mg/dL mg/dL (Negative); Urobilinogen,Urine < 2.0 mg/dL (<2.0); WBC,Urine < 1.0 /HPF (0.0-6.0)
[2021-07-19 21:04] LABS: Bilirubin,Urine Negative (Negative); Blood,Urine Negative (Negative); Color,Urine Straw (Yellow); Creatinine,Urine 23.6 mg/dL (0.1-20.0); Protein,Urine <15 mg/dL mg/dL (Negative); Protein/Creatinine Ratio,Urine 0.72; Urobilinogen,Urine < 2.0 mg/dL (<2.0); WBC,Urine < 1.0 /HPF (0.0-6.0)
[2021-07-19] MEDS ORDERED: POTASSIUM CHLORIDE ER 20 MEQ TAB PO SCH (22:00)
[2021-07-20 06:05] LABS: Mean Corpuscular HGB Conc 34 % (32-34); Mean Corpuscular Volume 91 fl (84-94); Platelet Count 217 K/mm3 (140-440); Red Blood Count 4.85 M/mm3 (3.65-5.03); Red Cell Distribution Width 15.1 % (13.2-15.2)
[2021-07-20 06:25] LABS: BUN/Creatinine Ratio 15; Blood Urea Nitrogen 22 mg/dL (9-20); Calcium 8.5 mg/dL (8.4-10.2); Hemolysis Index 35
[2021-07-20 07:16] LABS: Myelocytes # (Manual) 0.1 K/mm3; Promyelocytes # (Manual) 0.1 K/mm3; Total Cells Counted 100
[2021-07-20 07:17] LABS: Platelet Estimate Consistent w Auto
[2021-07-20] MEDS: INSULIN LISPRO 100 UNIT/ML SUB-Q SCH ×4 (08:36→21:59)
--- NOTE | 2021-07-20 08:55 | Progress Note ---
Assessment and Plan Assessment and plan: Patient is a 46-year-old male with past medical history of GERD recently diagnosed CHF hypertension morbid obesity with BMI of 47.3. The patient reports that he has in the last 2 months quit alcohol use which he drank heavily in the past but never required hospitalization or had any seizure-like activity. In the last 2 months also he has noted worsening shortness of breath with exertion. 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 He presents to the ED with worsening shortness of breath he was recently seen by a physician Dr. Jered Mccloud in [facility] where and was started on medications listed below. He denies any nausea vomiting or diarrhea he denies any fever. He reports that he was vaccinated against COVID-19 with 2 doses 2 months ago. 1. New onset CHF: Continue care on telemetry. Cardiology consult input noted. Daily weights. Continue on Lasix resume patient's home beta-gay . X-ray notable for pulmonary edema with pleural effusion, BNP markedly elevated, troponin normal, decreased kidney function. IV furosemide given emergency department. Plan is for possible ischemic work-up when clinically stable. 2. KOLTON: Suspect vasomotor nephropathy with recent use furosemide, patient will need supervised monitor diuresis, obtain nephrology eval, further work up per them 3. Abnormal liver function: tests suspect fatty liver disease versus alcohol liver disease, patient recently stopped drinking alcohol. We will continue to monitor closely. Monitor for withdrawal symptoms 4. Hyperkalemia: We will give a dose of Kayexalate. Patient was on potassium outpatient we will discontinue this. Anticipate that this will also correct and may be become hypokalemic with Lasix but will monitor closely. 5. Hyponatremia: Continue to monitor 6. severe obesity: BMI 47, patient is currently 319 pounds. He explained that he weighed 185 pounds in high school. Provided education regarding lifestyle modification. Extensive counseling provided to the patient he verbalized understanding Continue inpatient care for further diuresis. Monitor electrolytes and replace as needed anticipate ischemic work-up inpatient History Interval history: Patient seen and examined this morning reports that he is feeling better. Denies any chest pain nausea vomiting. He has not ambulated yet except going to the bathroom. Hospitalist Physical - Physical exam Narrative exam: VITAL SIGNS: Reviewed. GENERAL: The patient appears normally developed, morbidly obese, no distress vital signs as documented. HEAD: No signs of head trauma. EYES: Pupils are equal. Extraocular motions intact. EARS: Hearing grossly intact. MOUTH: Oropharynx is normal. NECK: No adenopathy, no JVD. CHEST: Chest with diminished breath sounds bilaterally. No wheezes, rales, or rhonchi. CARDIAC: Regular rate and rhythm. S1 and S2, without murmurs, gallops, or rubs. VASCULAR: No Edema. Peripheral pulses normal and equal in all extremities. ABDOMEN: Large pannus soft, non tender and non distended. No rebound or guarding, and no masses palpated. Bowel Sounds normal. MUSCULOSKELETAL: Good range of motion of all major joints. Extremities without clubbing, cyanosis. +2 pitting edema. NEUROLOGIC EXAM: Alert and oriented x 3 No focal sensory or strength deficits. Speech normal. Follows commands. PSYCHIATRIC: Mood normal. SKIN: detail exam as documented in skin assessment - Constitutional Vitals: Temp Pulse Resp BP Pulse Ox 98.4 F 83 18 129/85 99 07/20/21 03:13 07/20/21 03:13 07/20/21 03:13 07/20/21 03:13 07/20/21 03:13 General appearance: Present: no acute distress HEART Score - HEART Score Troponin: Troponin T < 0.010 ng/mL (0.00-0.029) 07/19/21 06:54 Results - Labs CBC & Chem 7: 07/20/21 05:19 07/20/21 05:19 Labs: Laboratory Last Values WBC 6.4 K/mm3 (4.5-11.0) 07/20/21 05:19 RBC 4.85 M/mm3 (3.65-5.03) 07/20/21 05:19 Hgb 15.0 gm/dl (11.8-15.2) 07/20/21 05:19 Hct 44.0 % (35.5-45.6) D 07/20/21 05:19 MCV 91 fl (84-94) 07/20/21 05:19 MCH 31 pg (28-32) 07/20/21 05:19 MCHC 34 % (32-34) 07/20/21 05:19 RDW 15.1 % (13.2-15.2) 07/20/21 05:19 Plt Count 217 K/mm3 (140-440) 07/20/21 05:19 [place] % (Auto) Logger Driving Horses 07/20/21 05:19 Baso % (Auto) Logger Driving Horses 07/19/21 06:54 Add Manual Diff Complete 07/20/21 05:19 Total Counted 100 07/20/21 05:19 Seg Neuts % (Manual) 63.0 % (40.0-70.0) 07/20/21 05:19 Lymphocytes % (Manual) 21.0 % (13.4-35.0) 07/20/21 05:19 Reactive Lymphs % (Man) 3.0 % 07/20/21 05:19 Monocytes % (Manual) 10.0 % (0.0-7.3) H 07/20/21 05:19 Basophils % (Manual) 1.0 % (0.0-1.8) 07/20/21 05:19 Myelocytes % 1.0 % 07/20/21 05:19 Promyelocytes % 1.0 % 07/20/21 05:19 Nucleated RBC % Not Reportable 07/20/21 05:19 Seg Neutrophils # Man 4.0 K/mm3 (1.8-7.7) 07/20/21 05:19 Band Neutrophils # 0.0 K/mm3 07/20/21 05:19 Lymphocytes # (Manual) 1.3 K/mm3 (1.2-5.4) 07/20/21 05:19 Abs React Lymphs (Man) 0.2 K/mm3 07/20/21 05:19 Monocytes # (Manual) 0.6 K/mm3 (0.0-0.8) 07/20/21 05:19 Eosinophils # (Manual) 0.0 K/mm3 (0.0-0.4) 07/20/21 05:19 Basophils # (Manual) 0.1 K/mm3 (0.0-0.1) 07/20/21 05:19 Metamyelocytes # 0.0 K/mm3 07/20/21 05:19 Myelocytes # 0.1 K/mm3 07/20/21 05:19 Promyelocytes # 0.1 K/mm3 07/20/21 05:19 Blast Cells # 0.0 K/mm3 07/20/21 05:19 WBC Morphology Not Reportable 07/20/21 05:19 Hypersegmented Neuts Not Reportable 07/20/21 05:19 Hyposegmented Neuts Not Reportable 07/20/21 05:19 Hypogranular Neuts Not Reportable 07/20/21 05:19 Smudge Cells Not Reportable 07/20/21 05:19 Toxic Granulation Not Reportable 07/20/21 05:19 Toxic Vacuolation Not Reportable 07/20/21 05:19 Dohle Bodies Not Reportable 07/20/21 05:19 Pelger-Huet Anomaly Not Reportable 07/20/21 05:19 Letitia Rods Not Reportable 07/20/21 05:19 Platelet Estimate Consistent w auto 07/20/21 05:19 Clumped Platelets Not Reportable 07/20/21 05:19 Plt Clumps, EDTA Not Reportable 07/20/21 05:19 Large Platelets Not Reportable 07/20/21 05:19 Giant Platelets Not Reportable 07/20/21 05:19 Platelet Satelliting Not Reportable 07/20/21 05:19 Plt Morphology Comment Not Reportable 07/20/21 05:19 RBC Morphology Not Reportable 07/20/21 05:19 Dimorphic RBCs Not Reportable 07/20/21 05:19 Polychromasia Not Reportable 07/20/21 05:19 Hypochromasia Not Reportable 07/20/21 05:19 Poikilocytosis Not Reportable 07/20/21 05:19 Anisocytosis Not Reportable 07/20/21 05:19 Microcytosis Not Reportable 07/20/21 05:19 Macrocytosis Not Reportable 07/20/21 05:19 Spherocytes Not Reportable 07/20/21 05:19 Pappenheimer Bodies Not Reportable 07/20/21 05:19 Sickle Cells Not Reportable 07/20/21 05:19 Target Cells Not Reportable 07/20/21 05:19 Tear Drop Cells Not Reportable 07/20/21 05:19 Ovalocytes Not Reportable 07/20/21 05:19 Helmet Cells Not Reportable 07/20/21 05:19 Morales-Hidalgo Bodies Not Reportable 07/20/21 05:19 [place] Rings Not Reportable 07/20/21 05:19 [place] Cells Not Reportable 07/20/21 05:19 Bite Cells Not Reportable 07/20/21 05:19 Crenated Cell Not Reportable 07/20/21 05:19 Elliptocytes Not Reportable 07/20/21 05:19 Acanthocytes (Spur) Not Reportable 07/20/21 05:19 Rouleaux Not Reportable 07/20/21 05:19 Hemoglobin C Crystals Not Reportable 07/20/21 05:19 Schistocytes Not Reportable 07/20/21 05:19 Malaria parasites Not Reportable 07/20/21 05:19 Raul Bodies Not Reportable 07/20/21 05:19 Hem Pathologist Commnt No 07/20/21 05:19 Sodium 138 mmol/L (137-145) D 07/20/21 05:19 Potassium 3.4 mmol/L (3.6-5.0) L 07/20/21 05:19 Chloride 98.8 mmol/L (98-107) 07/20/21 05:19 Carbon Dioxide 30 mmol/L (22-30) 07/20/21 05:19 Anion Gap 13 mmol/L 07/20/21 05:19 BUN 22 mg/dL (9-20) H 07/20/21 05:19 Creatinine 1.5 mg/dL (0.8-1.3) H 07/20/21 05:19 Estimated GFR > 60 ml/min 07/20/21 05:19 BUN/Creatinine Ratio 15 % 07/20/21 05:19 Glucose 100 mg/dL (75-100) 07/20/21 05:19 POC Glucose 94 mg/dL (70-105) 07/20/21 07:50 Calcium 8.5 mg/dL (8.4-10.2) 07/20/21 05:19 Total Bilirubin 2.70 mg/dL (0.1-1.2) H 07/19/21 06:54 AST 98 units/L (5-40) H 07/19/21 06:54 ALT 94 units/L (7-56) H 07/19/21 06:54 Alkaline Phosphatase 121 units/L (35-129) 07/19/21 06:54 Troponin T < 0.010 ng/mL (0.00-0.029) 07/19/21 06:54 NT-Pro-B Natriuret Pep 7537 pg/mL (0-450) H 07/19/21 06:54 Total Protein 7.8 g/dL (6.3-8.2) 07/19/21 06:54 Albumin 4.2 g/dL (3.9-5) 07/19/21 06:54 Albumin/Globulin Ratio 1.2 % 07/19/21 06:54 Triglycerides 94 mg/dL (2-149) 07/19/21 10:21 Cholesterol 209 mg/dL (50-199) H 07/19/21 10:21 LDL Cholesterol Direct 154 mg/dL (50-130) H 07/19/21 10:21 HDL Cholesterol 42 mg/dL (40-59) 07/19/21 10:21 Cholesterol/HDL Ratio 4.97 % 07/19/21 10:21 Urine Color Straw (Yellow) 07/19/21 20:32 Urine Turbidity Clear (Clear) 07/19/21 20:32 Urine pH 5.0 (5.0-7.0) 07/19/21 20:32 Ur Specific [place] 1.004 (1.003-1.030) 07/19/21 20:32 Urine Protein <15 mg/dl mg/dL (Negative) 07/19/21 20:32 Urine Glucose (UA) Neg mg/dL (Negative) 07/19/21 20:32 Urine Ketones Neg mg/dL (Negative) 07/19/21 20:32 Urine Blood Neg (Negative) 07/19/21 20:32 Urine Nitrite Neg (Negative) 07/19/21 20:32 Urine Bilirubin Neg (Negative) 07/19/21 20:32 Urine Urobilinogen < 2.0 mg/dL (<2.0) 07/19/21 20:32 Ur Leukocyte Esterase Neg (Negative) 07/19/21 20:32 Urine WBC (Auto) < 1.0 /HPF (0.0-6.0) 07/19/21 20:32 Urine RBC (Auto) 2.0 /HPF (0.0-6.0) 07/19/21 20:32 Urine Creatinine 23.6 mg/dL (0.1-20.0) H 07/19/21 20:05 Protein/Creatinin Ratio 0.72 07/19/21 20:05 Urine Sodium 49 mmol/L 07/19/21 20:05 Urine Total Protein 17 mg/dL (5-11.8) H 07/19/21 20:05 [place]/IV: Voiding Method Toilet Active Medications - Current Medications Current Medications: Generic Name Dose Route Start Last Admin Trade Name Freq PRN Reason Stop Dose Admin Acetaminophen 650 mg 07/19/21 10:30 Acetaminophen 325 Mg Tab PO Q4H PRN Pain MILD(1-3)/Fever >100.5/RUIZ Albuterol 2.5 mg 07/19/21 11:00 Albuterol 2.5 Mg/3 Ml Nebu IH Q3HRT PRN Shortness Of Breath Dextrose 50 ml 07/19/21 10:00 Dextrose 50% In Water (25gm) 50 Ml Syringe IV Q30MIN PRN Hypoglycemia Protocol Furosemide 40 mg 07/20/21 10:00 Furosemide 40 Mg/4 Ml Inj IV QDAY [facility] Hydralazine HCl 10 mg 07/19/21 14:00 Hydralazine 20 Mg/1 Ml Inj IV Q4HR PRN Hypertension Insulin Human Lispro 0 unit 07/19/21 11:30 07/20/21 08:36 Insulin Lispro 100 Unit/Ml SUB-Q Not Given ACHS [facility] Protocol Metoprolol Tartrate 100 mg 07/20/21 10:00 Metoprolol Tartrate 100 Mg Tab PO DAILY [facility] Naloxone HCl 0.1 mg 07/19/21 10:30 Naloxone 0.4 Mg/1 Ml Inj IV Q2MIN PRN Res Rate </= 8 or 02 SAT < 92% Ondansetron HCl 4 mg 07/19/21 11:00 Ondansetron 4 Mg/2 Ml Inj IV Q8H PRN Nausea And Vomiting Oxycodone/Acetaminophen 1 tab 07/19/21 11:00 Oxycodone /Acetaminophen 5-325mg Tab PO Q6H PRN Pain, Moderate (4-6) Pantoprazole Sodium 40 mg 07/20/21 10:00 Pantoprazole 40 Mg Tab PO QDAY [facility] Potassium Chloride 40 meq 07/20/21 08:47 Potassium Chloride Er 20 Meq Tab PO 07/20/21 08:48 ONCE ONE Sodium Chloride 10 ml 07/19/21 10:00 07/19/21 21:57 Sodium Chloride 0.9% 10 Ml Flush Syringe IV 10 ml BID FELIPE Administration Sodium Chloride 10 ml 07/19/21 09:54 Sodium Chloride 0.9% 10 Ml Flush Syringe IV PRN PRN LINE FLUSH Nutrition/Malnutrition Assess - Dietary Evaluation Nutrition/Malnutrition Findings: Nutrition Notes Start: 07/19/21 12:12 Freq: Status: Active Protocol: Document 07/19/21 12:12 VALDO (Rec: 07/19/21 12:13 VALDO [id number]) Nutrition Notes Need for Assessment generated from: MD Order,Education Initial or Follow up Brief Note Current Diagnosis Hypertension,Heart Failure Other Pertinent Diagnosis Chest pain, RICHAR Current Diet Cardiac Subjective/Other Information RD consulted for diet education. Pt in ED at this time. Nutrition Intervention Follow-Up By: 07/24/21 Additional Comments F/U: transfer to medical floor , diet education needs
[2021-07-20] MEDS ORDERED: FUROSEMIDE 40 MG/4 ML INJ IV SCH (10:00)
[2021-07-20] MEDS: PANTOPRAZOLE 40 MG TAB PO SCH (10:25)
[2021-07-20] MEDS: POTASSIUM CHLORIDE ER 20 MEQ TAB PO NR ×2 (10:25→10:33)
[2021-07-20] MEDS: METOPROLOL TARTRATE 100 MG TAB PO SCH (10:32)
--- NOTE | 2021-07-20 11:00 | Ultrasound Report ---
ULTRASOUND RENAL INDICATION / CLINICAL INFORMATION: Acute renal failure.. COMPARISON: CT abdomen/pelvis without contrast 06/14/2018. FINDINGS: Technically limited exam due to patient body habitus. RIGHT KIDNEY: Length = 12.3 cm. - Echogenicity: Normal. - Cortical Thickness: Normal. - Hydronephrosis: None. - Cyst / Mass: None. - Stones: None seen. LEFT KIDNEY: Length = 11.2 cm. - Echogenicity: Normal. - Cortical Thickness: Normal. - Hydronephrosis: None. - Cyst / Mass: None. - Stones: None seen. URINARY BLADDER: No significant abnormality. FREE FLUID: None. ADDITIONAL FINDINGS: None. IMPRESSION: Limited exam without a significant sonographic abnormality of the kidneys. Scribed by: Angi Pereira RDMS, RVT Scribed: 07/20/2021 9:44 AM I have reviewed the images, agree with this report, and edited this report as needed. Signer Name: Umang Davis MD Signed: 07/20/2021 10:56 AM Workstation Name: [email or web address]
--- NOTE | 2021-07-20 12:38 | Progress Note ---
Assessment and Plan Acute HFrEF // Newly Diagnosed Cardiomyopathy -Echo reviewed - EF 15-20%, restrictive physiology, LV mildly dilated, mild LVH, RV dilated, reduced RVSF, LA mildly dilated, RA dilated, mild TR, RVSP 28mmHg -Continue IV diuresis with strict I/Os -2500mL UOP noted/24 hrs -Continue Toprol 100mg daily -Will consider adding ACEI/ARB when renal fxn is stable -Lifestyle modifications, including weight loss and fluid/salt restrictions, d/w pt at bedside -Plan for ischemic eval when euvolumia has been achieved -Will need to obtain LifeVest prior to discharge if pt is agreeable KOLTON -Closely monitor renal indices & electrolytes HTN -Will optimize antihypertensive regimen as needed HLD -No statin at this time in the setting of elevated LFTs Elevated LFTs -Pt reports h/o EtOH abuse Obesity / ?AARON -Recommend outpatient sleep eval Pt seen in conjunction with Dr. Grande, who agrees with the assessment and plan of care. - Patient Problems (1) Acute HFrEF (heart failure with reduced ejection fraction) Current Visit: Yes Status: Acute (2) Cardiomyopathy Current Visit: Yes Status: Acute (3) Acute kidney injury Current Visit: Yes Status: Acute (4) HTN (hypertension) Current Visit: Yes Status: Chronic Qualifiers: Hypertension type: primary hypertension Qualified Code(s): I10 - Essential (primary) hypertension (5) HLD (hyperlipidemia) Current Visit: Yes Status: Chronic Qualifiers: Hyperlipidemia type: mixed hyperlipidemia Qualified Code(s): E78.2 - Mixed hyperlipidemia (6) Obesity Current Visit: Yes Status: Chronic Qualifiers: Body mass index: BMI 50.0-59.9 Subjective Date of service: 07/20/21 Principal diagnosis: Acute HFrEF Interval history: No new complaints. SOB is improving. Tele reviewed - SR 90s, no events. Objective Vital Signs Temp Pulse Resp BP BP Pulse Ox 07/20/21 11:00 89 07/20/21 10:32 98 H 188/125 07/20/21 03:13 98.4 F 83 18 129/85 99 07/19/21 23:57 89 07/19/21 23:40 119 H 23 156/61 90 07/19/21 23:30 114 H 32 H 156/61 89 07/19/21 23:20 112 H 21 129/53 88 07/19/21 23:10 114 H 21 129/53 89 07/19/21 23:00 114 H 19 129/53 90 07/19/21 22:50 116 H 22 156/61 91 07/19/21 22:40 117 H 18 129/53 95 07/19/21 22:30 114 H 22 167/128 95 07/19/21 22:20 111 H 29 H 167/128 97 07/19/21 22:10 114 H 20 167/128 96 07/19/21 22:08 167/128 97 07/19/21 21:20 102 H 12 167/128 100 07/19/21 21:16 106 H 17 167/128 98 07/19/21 21:00 105 H 18 98 07/19/21 20:00 100 H 99 07/19/21 19:10 97.7 F 94 H 19 139/102 98 07/19/21 19:00 100 H 26 H 99 07/19/21 18:00 94 H 26 H 148/105 98 07/19/21 17:00 92 H 19 148/105 98 07/19/21 16:00 93 H 15 148/105 98 07/19/21 15:00 97 H 23 148/105 99 07/19/21 14:00 94 H 35 H 166/119 98 - Physical Examination General: No Apparent Distress HEENT: Positive: EOMI, Normocephaly Neck: Positive: neck supple, trachea midline Cardiac: Positive: Reg Rate and Rhythm, S1/S2. Negative: Audible Murmur Lungs: Positive: Decreased Breath Sounds (bases) Neuro: Positive: Grossly Intact Abdomen: Positive: Soft. Negative: Tender Skin: Negative: Rash Musculoskeletal: No Pain Extremities: Present: lower extr. pulses, +2 Edema (BLE), warm - Labs and Meds CBC 07/20/21 Range/Units 05:19 WBC 6.4 (4.5-11.0) K/mm3 RBC 4.85 (3.65-5.03) M/mm3 Hgb 15.0 (11.8-15.2) gm/dl Hct 44.0 D (35.5-45.6) % Plt Count 217 (140-440) K/mm3 Comprehensive Metabolic Panel 07/19/21 07/20/21 Range/Units 16:19 05:19 Sodium 138 D (137-145) mmol/L Potassium 3.9 D 3.4 L (3.6-5.0) mmol/L Chloride 98.8 (98-107) mmol/L Carbon Dioxide 30 (22-30) mmol/L BUN 22 H (9-20) mg/dL Creatinine 1.5 H (0.8-1.3) mg/dL Glucose 100 (75-100) mg/dL Calcium 8.5 (8.4-10.2) mg/dL - Imaging and Cardiology EKG: report reviewed, image reviewed Echo: report reviewed - Telemetry EKG Rhythm: Sinus Rhythm - EKG Sinus rhythms and dysrhythmias: sinus rhythm
[2021-07-20] MEDS ORDERED: POTASSIUM CHLORIDE ER 20 MEQ TAB PO SCH (13:00)
--- NOTE | 2021-07-20 13:52 | Progress Note ---
Assessment and Plan 1. Acute kidney injury: KOLTON in the setting of decompensated CHF. UA bland. Renal US negative. Monitor renal function. Creatinine level is slightly better today. Avoid nephrotoxic agents. Meds dosage based on GFR. 2. FEN: Hyperkalemia, improved. Hyponatremia, in the setting of CHF, improved, monitor. Volume overload, diuretics, monitor. Monitor lytes and volume status. 3. New onset CHF: Telemetry. Echo EF 15-20%. Followed by Cards. Daily weights, strict I/O. IV Lasix and beta-gay. 4. Abnormal liver function: 2/2 fatty liver disease vs alcohol liver disease. Monitor. 5. Class 3 obesity: BMI 47. Weight loss advised. 6. Elevated bl glu: A1C ordered. Subjective: Patient was seen and examined at the bedside. Examination: General appearance: well-developed, appears stated age, obese, on RA HEENT: atraumatic Neck: trachea midline Respiratory: diminished breath sounds Heart: S1S2, regular, no murmur Abdomen: soft, obese, bowel sounds heard, NT Integumentary: no rash Neurologic: AO, non-focal Ext: 2+ LE edema Subjective Date of service: 07/20/21 Principal diagnosis: Acute HFrEF Objective - Vital Signs Vital signs: Vital Signs - 12hr 07/20/21 07/20/21 07/20/21 03:13 10:32 11:00 Temperature 98.4 F Pulse Rate 83 98 H Respiratory 18 Rate Blood Pressure 129/85 188/125 O2 Sat by Pulse 99 89 Oximetry - Lab 07/20/21 05:19 07/20/21 05:19 Most recent lab results Calcium 8.5 mg/dL (8.4-10.2) 07/20/21 05:19 Urine Creatinine 23.6 mg/dL (0.1-20.0) H 07/19/21 20:05 Urine Sodium 49 mmol/L 07/19/21 20:05 Urine Total Protein 17 mg/dL (5-11.8) H 07/19/21 20:05 Medications & Allergies - Medications Allergies/Adverse Reactions: Allergies No Known Allergies Allergy (Unverified 06/14/18 09:41) Home Medications: Home Medications Medication Instructions Recorded Confirmed Last Taken Type Furosemide [Lasix TAB] 40 mg PO BID 07/19/21 07/19/21 Unknown History Metoprolol [Lopressor] 100 mg PO DAILY 07/19/21 07/19/21 Unknown History Pantoprazole [Protonix] 40 mg PO QDAY 07/19/21 07/19/21 Unknown History Potassium Chloride [K-Dur] 40 meq PO BID 07/19/21 07/19/21 Unknown History Active Medications: Generic Name Dose Route Start Last Admin Trade Name Freq PRN Reason Stop Dose Admin Acetaminophen 650 mg 07/19/21 10:30 Acetaminophen 325 Mg Tab PO Q4H PRN Pain MILD(1-3)/Fever >100.5/RUIZ Albuterol 2.5 mg 07/19/21 11:00 Albuterol 2.5 Mg/3 Ml Nebu IH Q3HRT PRN Shortness Of Breath Dextrose 50 ml 07/19/21 10:00 Dextrose 50% In Water (25gm) 50 Ml Syringe IV Q30MIN PRN Hypoglycemia Protocol Furosemide 40 mg 07/20/21 10:00 07/20/21 10:33 Furosemide 40 Mg/4 Ml Inj IV 40 mg QDAY FELIPE Administration Hydralazine HCl 10 mg 07/19/21 14:00 Hydralazine 20 Mg/1 Ml Inj IV Q4HR PRN Hypertension Insulin Human Lispro 0 unit 07/19/21 11:30 07/20/21 08:36 Insulin Lispro 100 Unit/Ml SUB-Q Not Given ACHS FELIPE Protocol Metoprolol Tartrate 100 mg 07/20/21 10:00 07/20/21 10:32 Metoprolol Tartrate 100 Mg Tab PO 100 mg DAILY FELIPE Administration Naloxone HCl 0.1 mg 07/19/21 10:30 Naloxone 0.4 Mg/1 Ml Inj IV Q2MIN PRN Res Rate </= 8 or 02 SAT < 92% Ondansetron HCl 4 mg 07/19/21 11:00 Ondansetron 4 Mg/2 Ml Inj IV Q8H PRN Nausea And Vomiting Oxycodone/Acetaminophen 1 tab 07/19/21 11:00 Oxycodone /Acetaminophen 5-325mg Tab PO Q6H PRN Pain, Moderate (4-6) Pantoprazole Sodium 40 mg 07/20/21 10:00 07/20/21 10:25 Pantoprazole 40 Mg Tab PO 40 mg QDAY FELIPE Administration Potassium Chloride 40 meq 07/20/21 13:00 Potassium Chloride Er 20 Meq Tab PO 07/20/21 17:00 ONCE@1300 FELIPE Sodium Chloride 10 ml 07/19/21 10:00 07/20/21 10:25 Sodium Chloride 0.9% 10 Ml Flush Syringe IV 10 ml BID FELIPE Administration Sodium Chloride 10 ml 07/19/21 09:54 Sodium Chloride 0.9% 10 Ml Flush Syringe IV PRN PRN LINE FLUSH
[2021-07-20] MEDS: hydrALAZINE 20 MG/1 ML INJ IV PRN (18:44)
[2021-07-20] MEDS: FUROSEMIDE 40 MG/4 ML INJ IV SCH (21:59)
[2021-07-21 05:59] LABS: Hematocrit 44.9 % (35.5-45.6); Hemoglobin 15.2 gm/dl (11.8-15.2); Mean Corpuscular HGB Conc 34 % (32-34); Mean Corpuscular Volume 91 fl (84-94); Platelet Count 213 K/mm3 (140-440); Red Blood Count 4.97 M/mm3 (3.65-5.03); Red Cell Distribution Width 14.9 % (13.2-15.2)
[2021-07-21 06:22] LABS: BUN/Creatinine Ratio 13; Blood Urea Nitrogen 17 mg/dL (9-20); Calcium 8.6 mg/dL (8.4-10.2); Hemolysis Index 77
--- NOTE | 2021-07-21 08:38 | Progress Note ---
Assessment and Plan 1. Acute kidney injury: KOLTON in the setting of decompensated CHF. UA bland. Renal US negative. Monitor renal function. Creatinine level is improving. Avoid nephrotoxic agents. Meds dosage based on GFR. 2. FEN: Hyperkalemia, improved. Hyponatremia, in the setting of CHF, improved, monitor. Volume overload, diuretics, monitor. Monitor lytes and volume status. 3. New onset CHF: Telemetry. Echo EF 15-20%. Followed by Cards. Daily weights, strict I/O. IV Lasix and beta-gay. 4. Abnormal liver function: 2/2 fatty liver disease vs alcohol liver disease. Monitor. 5. Class 3 obesity: BMI 47. Weight loss advised. 6. Elevated bl glu: A1C ordered. Subjective: Patient was seen and examined at the bedside. Examination: General appearance: well-developed, appears stated age, obese, on RA HEENT: atraumatic Neck: trachea midline Respiratory: diminished breath sounds Heart: S1S2, regular, no murmur Abdomen: soft, obese, bowel sounds heard, NT Integumentary: no rash Neurologic: AO, non-focal Ext: 2+ LE edema Subjective Date of service: 07/28/21 Principal diagnosis: Acute HFrEF Objective - Vital Signs Vital signs: Vital Signs - 12hr 07/20/21 07/20/21 07/20/21 21:48 23:00 23:12 Temperature 97.7 F Pulse Rate 100 H Respiratory 18 Rate Blood Pressure 149/79 O2 Sat by Pulse 96 92 99 Oximetry 07/20/21 07/21/21 23:35 03:18 Temperature 98.1 F Pulse Rate 91 H Respiratory 19 Rate Blood Pressure 151/103 O2 Sat by Pulse 99 98 Oximetry - Lab 07/21/21 05:16 07/21/21 05:16 Most recent lab results Calcium 8.6 mg/dL (8.4-10.2) 07/21/21 05:16 Urine Creatinine 23.6 mg/dL (0.1-20.0) H 07/19/21 20:05 Urine Sodium 49 mmol/L 07/19/21 20:05 Urine Total Protein 17 mg/dL (5-11.8) H 07/19/21 20:05 Medications & Allergies - Medications Allergies/Adverse Reactions: Allergies No Known Allergies Allergy (Unverified 06/14/18 09:41) Home Medications: Home Medications Medication Instructions Recorded Confirmed Last Taken Type Furosemide [Lasix TAB] 40 mg PO BID 07/19/21 07/19/21 Unknown History Metoprolol [Lopressor] 100 mg PO DAILY 07/19/21 07/19/21 Unknown History Pantoprazole [Protonix] 40 mg PO QDAY 07/19/21 07/19/21 Unknown History Potassium Chloride [K-Dur] 40 meq PO BID 07/19/21 07/19/21 Unknown History Active Medications: Generic Name Dose Route Start Last Admin Trade Name Freq PRN Reason Stop Dose Admin Acetaminophen 650 mg 07/19/21 10:30 Acetaminophen 325 Mg Tab PO Q4H PRN Pain MILD(1-3)/Fever >100.5/RUIZ Albuterol 2.5 mg 07/19/21 11:00 Albuterol 2.5 Mg/3 Ml Nebu IH Q3HRT PRN Shortness Of Breath Dextrose 50 ml 07/19/21 10:00 Dextrose 50% In Water (25gm) 50 Ml Syringe IV Q30MIN PRN Hypoglycemia Protocol Furosemide 40 mg 07/20/21 22:00 07/20/21 21:59 Furosemide 40 Mg/4 Ml Inj IV 40 mg BID FELIPE Administration Hydralazine HCl 10 mg 07/19/21 14:00 07/20/21 18:44 Hydralazine 20 Mg/1 Ml Inj IV 10 mg Q4HR PRN Administration Hypertension Insulin Human Lispro 0 unit 07/19/21 11:30 07/20/21 21:59 Insulin Lispro 100 Unit/Ml SUB-Q Not Given ACHS FELIPE Protocol Metoprolol Tartrate 100 mg 07/20/21 10:00 07/20/21 10:32 Metoprolol Tartrate 100 Mg Tab PO 100 mg DAILY FELIPE Administration Naloxone HCl 0.1 mg 07/19/21 10:30 Naloxone 0.4 Mg/1 Ml Inj IV Q2MIN PRN Res Rate </= 8 or 02 SAT < 92% Ondansetron HCl 4 mg 07/19/21 11:00 Ondansetron 4 Mg/2 Ml Inj IV Q8H PRN Nausea And Vomiting Oxycodone/Acetaminophen 1 tab 07/19/21 11:00 Oxycodone /Acetaminophen 5-325mg Tab PO Q6H PRN Pain, Moderate (4-6) Pantoprazole Sodium 40 mg 07/20/21 10:00 07/20/21 10:25 Pantoprazole 40 Mg Tab PO 40 mg QDAY FELIPE Administration Sodium Chloride 10 ml 07/19/21 10:00 07/20/21 22:01 Sodium Chloride 0.9% 10 Ml Flush Syringe IV 10 ml BID FELIPE Administration Sodium Chloride 10 ml 07/19/21 09:54 Sodium Chloride 0.9% 10 Ml Flush Syringe IV PRN PRN LINE FLUSH
[2021-07-21] MEDS: METOPROLOL TARTRATE 100 MG TAB PO SCH (09:20)
[2021-07-21] MEDS: FUROSEMIDE 40 MG/4 ML INJ IV SCH ×2 (09:20→21:31)
[2021-07-21] MEDS: PANTOPRAZOLE 40 MG TAB PO SCH (09:20)
[2021-07-21] MEDS: INSULIN LISPRO 100 UNIT/ML SUB-Q SCH ×4 (09:21→22:44)
[2021-07-21] MEDS: hydrALAZINE 20 MG/1 ML INJ IV PRN ×2 (09:21→23:44)
[2021-07-21] MEDS: VALSARTAN 160MG TAB PO SCH ×2 (14:45→21:32)
[2021-07-21] MEDS ORDERED: SODIUM CHLORIDE 0.9% 500 ML 500 ML IV SCH (15:00)
--- NOTE | 2021-07-21 15:18 | Progress Note ---
Assessment and Plan Patient is 46y/o male with a PMHx of HTN and obesity HFrEF HTN * EKG shows sinus rhythm 85 with no acute ischemic changes, trops neg, no chest pain * BNP noted to be elevated 7537, CXR shows pulmonary congestion, patient endorses orthopnea SOB, and has BLE +2-3. Echo pending * Patient currrently on metoprolol 100mg QD and valsartan 160mg PO BID * Echo 07/19/2021- EF 15-20%, restrictive physiology, LV mildly dilated, mild LVH, RV dilated, reduced RVSF, LA mildly dilated, RA dilated, mild TR, RVSP 28mmHg KOLTON * Nephrology following Hyperkalemia(resolved) * Management per primary team HLD * No statin at this time in the setting of elevated LFTs Elevated LFTs * Pt reports h/o EtOH abuse Plan: Continue diuresis. Initiated hydralizine 25mg PO TID for BP control. Will plan for cardiac cath on Saturday. Discussed importance of diet and lifestyle modifications with patient. Patient seen in conjunction with Dr. Grande who agrees with this plan of care. Will continue to follow - Patient Problems (1) HTN (hypertension) Current Visit: Yes Status: Chronic Qualifiers: Hypertension type: primary hypertension Qualified Code(s): I10 - Essential (primary) hypertension (2) Abnormal liver function test Current Visit: Yes Status: Acute (3) Acute kidney injury Current Visit: Yes Status: Acute (4) New onset of congestive heart failure Current Visit: Yes Status: Acute (5) Severe obesity Current Visit: Yes Status: Acute Subjective Date of service: 07/21/21 Principal diagnosis: Acute HFrEF Interval history: Patient sitting in chair. Reports feeling significantly better today Sinus tach 100 on monitor Objective Vital Signs Temp Pulse Resp BP BP Pulse Ox 07/21/21 12:29 98.6 F 85 20 148/102 99 07/21/21 11:00 92 07/21/21 08:15 184/121 07/21/21 03:18 98.1 F 91 H 19 151/103 98 07/20/21 23:35 99 07/20/21 23:12 97.7 F 100 H 18 149/79 99 07/20/21 23:00 92 07/20/21 21:48 96 07/20/21 19:29 97.9 F 94 H 19 143/97 99 07/20/21 18:44 88 176/135 07/20/21 16:00 97.2 F L 84 17 147/110 - Physical Examination General: No Apparent Distress HEENT: Positive: EOMI, Normocephaly Neck: Positive: neck supple, trachea midline Cardiac: Positive: Reg Rate and Rhythm Lungs: Positive: Normal Breath Sounds Neuro: Positive: Grossly Intact Abdomen: Positive: Soft. Negative: Tender Skin: Negative: Rash Musculoskeletal: No Pain Extremities: Present: lower extr. pulses, +2 Edema (BLE), warm - Labs and Meds CBC 07/21/21 Range/Units 05:16 WBC 5.2 (4.5-11.0) K/mm3 RBC 4.97 (3.65-5.03) M/mm3 Hgb 15.2 (11.8-15.2) gm/dl Hct 44.9 (35.5-45.6) % Plt Count 213 (140-440) K/mm3 Comprehensive Metabolic Panel 07/21/21 Range/Units 05:16 Sodium 141 (137-145) mmol/L Potassium 4.0 (3.6-5.0) mmol/L Chloride 98.6 (98-107) mmol/L Carbon Dioxide 32 H (22-30) mmol/L BUN 17 (9-20) mg/dL Creatinine 1.3 (0.8-1.3) mg/dL Glucose 110 H (75-100) mg/dL Calcium 8.6 (8.4-10.2) mg/dL - Imaging and Cardiology EKG: report reviewed, image reviewed Echo: report reviewed - Telemetry EKG Rhythm: Sinus Rhythm - EKG Sinus rhythms and dysrhythmias: sinus rhythm
--- NOTE | 2021-07-21 15:56 | Progress Note ---
Assessment and Plan Assessment and plan: Patient is a 46-year-old male with past medical history of GERD recently diagnosed CHF hypertension morbid obesity with BMI of 47.3. The patient reports that he has in the last 2 months quit alcohol use which he drank heavily in the past but never required hospitalization or had any seizure-like activity. In the last 2 months also he has noted worsening shortness of breath with exertion. 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 He presents to the ED with worsening shortness of breath he was recently seen by a physician Dr. Jered Mccloud in [facility] where and was started on medications listed below. He denies any nausea vomiting or diarrhea he denies any fever. He reports that he was vaccinated against COVID-19 with 2 doses 2 months ago. 1. New onset CHF: Continue care on telemetry. Cardiology consult input noted. Daily weights. Continue on Lasix resume patient's home beta-gay . X-ray notable for pulmonary edema with pleural effusion, BNP markedly elevated, troponin normal, decreased kidney function. IV furosemide given emergency department. Plan is for possible ischemic work-up when clinically stable. 2. KOLTON: Suspect vasomotor nephropathy with recent use furosemide, patient will need supervised monitor diuresis, obtain nephrology eval, further work up per them 3. Abnormal liver function: tests suspect fatty liver disease versus alcohol liver disease, patient recently stopped drinking alcohol. We will continue to monitor closely. Monitor for withdrawal symptoms 4. Hyperkalemia: We will give a dose of Kayexalate. Patient was on potassium outpatient we will discontinue this. Anticipate that this will also correct and may be become hypokalemic with Lasix but will monitor closely. 5. Hyponatremia: Continue to monitor 6. severe obesity: BMI 47, patient is currently 319 pounds. He explained that he weighed 185 pounds in high school. Provided education regarding lifestyle modification. 7. Hypertension: I have gone ahead to reinitiate Diovan for the patient and also cardiology added hydralazine. We will continue to monitor we will continue appropriate diuresis. Extensive counseling provided to the patient he verbalized understanding Continue inpatient care for further diuresis. Monitor electrolytes and replace as needed anticipate ischemic work-up inpatient History Interval history: Patient seen and examined this morning reports that he is feeling better. Sitting up. Put out over 2.5 L yesterday denies any chest pain nausea vomiting. Hospitalist Physical - Physical exam Narrative exam: VITAL SIGNS: Reviewed. GENERAL: The patient appears normally developed, morbidly obese, no distress vital signs as documented. HEAD: No signs of head trauma. EYES: Pupils are equal. Extraocular motions intact. EARS: Hearing grossly intact. MOUTH: Oropharynx is normal. NECK: No adenopathy, no JVD. CHEST: Chest with diminished breath sounds bilaterally. No wheezes, rales, or rhonchi. CARDIAC: Regular rate and rhythm. S1 and S2, without murmurs, gallops, or rubs. VASCULAR: No Edema. Peripheral pulses normal and equal in all extremities. ABDOMEN: Large pannus soft, non tender and non distended. No rebound or guarding, and no masses palpated. Bowel Sounds normal. MUSCULOSKELETAL: Good range of motion of all major joints. Extremities without clubbing, cyanosis. +2 pitting edema. NEUROLOGIC EXAM: Alert and oriented x 3 No focal sensory or strength deficits. Speech normal. Follows commands. PSYCHIATRIC: Mood normal. SKIN: detail exam as documented in skin assessment - Constitutional Vitals: Temp Pulse Resp BP Pulse Ox 98.6 F 85 20 148/102 99 07/21/21 12:29 07/21/21 12:29 07/21/21 12:29 07/21/21 12:29 07/21/21 12:29 General appearance: Present: no acute distress HEART Score - HEART Score Troponin: Troponin T < 0.010 ng/mL (0.00-0.029) 07/19/21 06:54 Results - Labs CBC & Chem 7: 07/21/21 05:16 07/21/21 05:16 Labs: Laboratory Last Values WBC 5.2 K/mm3 (4.5-11.0) 07/21/21 05:16 RBC 4.97 M/mm3 (3.65-5.03) 07/21/21 05:16 Hgb 15.2 gm/dl (11.8-15.2) 07/21/21 05:16 Hct 44.9 % (35.5-45.6) 07/21/21 05:16 MCV 91 fl (84-94) 07/21/21 05:16 MCH 31 pg (28-32) 07/21/21 05:16 MCHC 34 % (32-34) 07/21/21 05:16 RDW 14.9 % (13.2-15.2) 07/21/21 05:16 Plt Count 213 K/mm3 (140-440) 07/21/21 05:16 Holmes % (Auto) Endorsement Clerk 07/20/21 05:19 Baso % (Auto) Endorsement Clerk 07/19/21 06:54 Add Manual Diff Complete 07/20/21 05:19 Total Counted 100 07/20/21 05:19 Seg Neuts % (Manual) 63.0 % (40.0-70.0) 07/20/21 05:19 Lymphocytes % (Manual) 21.0 % (13.4-35.0) 07/20/21 05:19 Reactive Lymphs % (Man) 3.0 % 07/20/21 05:19 Monocytes % (Manual) 10.0 % (0.0-7.3) H 07/20/21 05:19 Basophils % (Manual) 1.0 % (0.0-1.8) 07/20/21 05:19 Myelocytes % 1.0 % 07/20/21 05:19 Promyelocytes % 1.0 % 07/20/21 05:19 Nucleated RBC % Not Reportable 07/20/21 05:19 Seg Neutrophils # Man 4.0 K/mm3 (1.8-7.7) 07/20/21 05:19 Band Neutrophils # 0.0 K/mm3 07/20/21 05:19 Lymphocytes # (Manual) 1.3 K/mm3 (1.2-5.4) 07/20/21 05:19 Abs React Lymphs (Man) 0.2 K/mm3 07/20/21 05:19 Monocytes # (Manual) 0.6 K/mm3 (0.0-0.8) 07/20/21 05:19 Eosinophils # (Manual) 0.0 K/mm3 (0.0-0.4) 07/20/21 05:19 Basophils # (Manual) 0.1 K/mm3 (0.0-0.1) 07/20/21 05:19 Metamyelocytes # 0.0 K/mm3 07/20/21 05:19 Myelocytes # 0.1 K/mm3 07/20/21 05:19 Promyelocytes # 0.1 K/mm3 07/20/21 05:19 Blast Cells # 0.0 K/mm3 07/20/21 05:19 WBC Morphology Not Reportable 07/20/21 05:19 Hypersegmented Neuts Not Reportable 07/20/21 05:19 Hyposegmented Neuts Not Reportable 07/20/21 05:19 Hypogranular Neuts Not Reportable 07/20/21 05:19 Smudge Cells Not Reportable 07/20/21 05:19 Toxic Granulation Not Reportable 07/20/21 05:19 Toxic Vacuolation Not Reportable 07/20/21 05:19 Dohle Bodies Not Reportable 07/20/21 05:19 Pelger-Huet Anomaly Not Reportable 07/20/21 05:19 Letitia Rods Not Reportable 07/20/21 05:19 Platelet Estimate Consistent w auto 07/20/21 05:19 Clumped Platelets Not Reportable 07/20/21 05:19 Plt Clumps, EDTA Not Reportable 07/20/21 05:19 Large Platelets Not Reportable 07/20/21 05:19 Giant Platelets Not Reportable 07/20/21 05:19 Platelet Satelliting Not Reportable 07/20/21 05:19 Plt Morphology Comment Not Reportable 07/20/21 05:19 RBC Morphology Not Reportable 07/20/21 05:19 Dimorphic RBCs Not Reportable 07/20/21 05:19 Polychromasia Not Reportable 07/20/21 05:19 Hypochromasia Not Reportable 07/20/21 05:19 Poikilocytosis Not Reportable 07/20/21 05:19 Anisocytosis Not Reportable 07/20/21 05:19 Microcytosis Not Reportable 07/20/21 05:19 Macrocytosis Not Reportable 07/20/21 05:19 Spherocytes Not Reportable 07/20/21 05:19 Pappenheimer Bodies Not Reportable 07/20/21 05:19 Sickle Cells Not Reportable 07/20/21 05:19 Target Cells Not Reportable 07/20/21 05:19 Tear Drop Cells Not Reportable 07/20/21 05:19 Ovalocytes Not Reportable 07/20/21 05:19 Helmet Cells Not Reportable 07/20/21 05:19 Morales-Zearing Bodies Not Reportable 07/20/21 05:19 [place] Rings Not Reportable 07/20/21 05:19 Breezy Cells Not Reportable 07/20/21 05:19 Bite Cells Not Reportable 07/20/21 05:19 Crenated Cell Not Reportable 07/20/21 05:19 Elliptocytes Not Reportable 07/20/21 05:19 Acanthocytes (Spur) Not Reportable 07/20/21 05:19 Rouleaux Not Reportable 07/20/21 05:19 Hemoglobin C Crystals Not Reportable 07/20/21 05:19 Schistocytes Not Reportable 07/20/21 05:19 Malaria parasites Not Reportable 07/20/21 05:19 Raul Bodies Not Reportable 07/20/21 05:19 Hem Pathologist Commnt No 07/20/21 05:19 Sodium 141 mmol/L (137-145) 07/21/21 05:16 Potassium 4.0 mmol/L (3.6-5.0) 07/21/21 05:16 Chloride 98.6 mmol/L (98-107) 07/21/21 05:16 Carbon Dioxide 32 mmol/L (22-30) H 07/21/21 05:16 Anion Gap 14 mmol/L 07/21/21 05:16 BUN 17 mg/dL (9-20) 07/21/21 05:16 Creatinine 1.3 mg/dL (0.8-1.3) 07/21/21 05:16 Estimated GFR > 60 ml/min 07/21/21 05:16 BUN/Creatinine Ratio 13 % 07/21/21 05:16 Glucose 110 mg/dL (75-100) H 07/21/21 05:16 POC Glucose 103 mg/dL (70-105) 07/21/21 12:31 Calcium 8.6 mg/dL (8.4-10.2) 07/21/21 05:16 Total Bilirubin 2.70 mg/dL (0.1-1.2) H 07/19/21 06:54 AST 98 units/L (5-40) H 07/19/21 06:54 ALT 94 units/L (7-56) H 07/19/21 06:54 Alkaline Phosphatase 121 units/L (35-129) 07/19/21 06:54 Troponin T < 0.010 ng/mL (0.00-0.029) 07/19/21 06:54 NT-Pro-B Natriuret Pep 7537 pg/mL (0-450) H 07/19/21 06:54 Total Protein 7.8 g/dL (6.3-8.2) 07/19/21 06:54 Albumin 4.2 g/dL (3.9-5) 07/19/21 06:54 Albumin/Globulin Ratio 1.2 % 07/19/21 06:54 Triglycerides 94 mg/dL (2-149) 07/19/21 10:21 Cholesterol 209 mg/dL (50-199) H 07/19/21 10:21 LDL Cholesterol Direct 154 mg/dL (50-130) H 07/19/21 10:21 HDL Cholesterol 42 mg/dL (40-59) 07/19/21 10:21 Cholesterol/HDL Ratio 4.97 % 07/19/21 10:21 Urine Color Straw (Yellow) 07/19/21 20:32 Urine Turbidity Clear (Clear) 07/19/21 20:32 Urine pH 5.0 (5.0-7.0) 07/19/21 20:32 Ur Specific [place] 1.004 (1.003-1.030) 07/19/21 20:32 Urine Protein <15 mg/dl mg/dL (Negative) 07/19/21 20:32 Urine Glucose (UA) Neg mg/dL (Negative) 07/19/21 20:32 Urine Ketones Neg mg/dL (Negative) 07/19/21 20:32 Urine Blood Neg (Negative) 07/19/21 20:32 Urine Nitrite Neg (Negative) 07/19/21 20:32 Urine Bilirubin Neg (Negative) 07/19/21 20:32 Urine Urobilinogen < 2.0 mg/dL (<2.0) 07/19/21 20:32 Ur Leukocyte Esterase Neg (Negative) 07/19/21 20:32 Urine WBC (Auto) < 1.0 /HPF (0.0-6.0) 07/19/21 20:32 Urine RBC (Auto) 2.0 /HPF (0.0-6.0) 07/19/21 20:32 Urine Creatinine 23.6 mg/dL (0.1-20.0) H 07/19/21 20:05 Protein/Creatinin Ratio 0.72 07/19/21 20:05 Urine Sodium 49 mmol/L 07/19/21 20:05 Urine Total Protein 17 mg/dL (5-11.8) H 07/19/21 20:05 [place]/IV: Voiding Method Toilet Active Medications - Current Medications Current Medications: Generic Name Dose Route Start Last Admin Trade Name Freq PRN Reason Stop Dose Admin Acetaminophen 650 mg 07/19/21 10:30 Acetaminophen 325 Mg Tab PO Q4H PRN Pain MILD(1-3)/Fever >100.5/RUIZ Albuterol 2.5 mg 07/19/21 11:00 Albuterol 2.5 Mg/3 Ml Nebu IH Q3HRT PRN Shortness Of Breath Dextrose 50 ml 07/19/21 10:00 Dextrose 50% In Water (25gm) 50 Ml Syringe IV Q30MIN PRN Hypoglycemia Protocol Furosemide 40 mg 07/20/21 22:00 07/21/21 09:20 Furosemide 40 Mg/4 Ml Inj IV 40 mg BID FELIPE Administration Hydralazine HCl 10 mg 07/19/21 14:00 07/21/21 09:21 Hydralazine 20 Mg/1 Ml Inj IV 10 mg Q4HR PRN Administration Hypertension Hydralazine HCl 25 mg 07/21/21 22:00 Hydralazine 25 Mg Tab PO Q8HR [facility] Sodium Chloride 500 mls @ 50 mls/hr 07/21/21 15:00 Nacl 0.9% 500 Ml IV 07/22/21 00:59 DIRECT [facility] Insulin Human Lispro 0 unit 07/19/21 11:30 07/21/21 12:41 Insulin Lispro 100 Unit/Ml SUB-Q Not Given ACHS [facility] Protocol Metoprolol Tartrate 100 mg 07/20/21 10:00 07/21/21 09:20 Metoprolol Tartrate 100 Mg Tab PO 100 mg DAILY FELIPE Administration Naloxone HCl 0.1 mg 07/19/21 10:30 Naloxone 0.4 Mg/1 Ml Inj IV Q2MIN PRN Res Rate </= 8 or 02 SAT < 92% Ondansetron HCl 4 mg 07/19/21 11:00 Ondansetron 4 Mg/2 Ml Inj IV Q8H PRN Nausea And Vomiting Oxycodone/Acetaminophen 1 tab 07/19/21 11:00 07/21/21 09:05 Oxycodone /Acetaminophen 5-325mg Tab PO 1 tab Q6H PRN Administration Pain, Moderate (4-6) Pantoprazole Sodium 40 mg 07/20/21 10:00 07/21/21 09:20 Pantoprazole 40 Mg Tab PO 40 mg QDAY FELIPE Administration Sodium Chloride 10 ml 07/19/21 10:00 07/21/21 09:21 Sodium Chloride 0.9% 10 Ml Flush Syringe IV 10 ml BID FELIPE Administration Sodium Chloride 10 ml 07/19/21 09:54 Sodium Chloride 0.9% 10 Ml Flush Syringe IV PRN PRN LINE FLUSH Valsartan 160 mg 07/21/21 10:00 Valsartan 160mg Tab PO BID FELIPE Nutrition/Malnutrition Assess - Dietary Evaluation Nutrition/Malnutrition Findings: Nutrition Notes Start: 07/19/21 12:12 Freq: Status: Active Protocol: Document 07/19/21 12:12 VALDO (Rec: 07/19/21 12:13 VALDO [email or web address]) Nutrition Notes Need for Assessment generated from: MD Order,Education Initial or Follow up Brief Note Current Diagnosis Hypertension,Heart Failure Other Pertinent Diagnosis Chest pain, RICHAR Current Diet Cardiac Subjective/Other Information RD consulted for diet education. Pt in ED at this time. Nutrition Intervention Follow-Up By: 07/24/21 Additional Comments F/U: transfer to medical floor , diet education needs
[2021-07-21] MEDS: hydrALAZINE 25 MG TAB PO SCH (21:32)
[2021-07-22] MEDS: hydrALAZINE 25 MG TAB PO SCH ×3 (05:00→21:50)
[2021-07-22 06:13] LABS: Hematocrit 44.6 % (35.5-45.6); Hemoglobin 15.2 gm/dl (11.8-15.2); Mean Corpuscular HGB Conc 34 % (32-34); Mean Corpuscular Volume 91 fl (84-94); Platelet Count 203 K/mm3 (140-440); Red Blood Count 4.89 M/mm3 (3.65-5.03); Red Cell Distribution Width 15.2 % (13.2-15.2)
[2021-07-22 06:22] LABS: BUN/Creatinine Ratio 11; Blood Urea Nitrogen 14 mg/dL (9-20); Calcium 8.8 mg/dL (8.4-10.2); Hemolysis Index 25
--- NOTE | 2021-07-22 08:27 | Progress Note ---
Assessment and Plan Assessment and plan: Patient is a 46-year-old male with past medical history of GERD recently diagnosed CHF hypertension morbid obesity with BMI of 47.3. The patient reports that he has in the last 2 months quit alcohol use which he drank heavily in the past but never required hospitalization or had any seizure-like activity. In the last 2 months also he has noted worsening shortness of breath with exertion. 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 He presents to the ED with worsening shortness of breath he was recently seen by a physician Dr. Jered Mccloud in [facility] where and was started on medications listed below. He denies any nausea vomiting or diarrhea he denies any fever. He reports that he was vaccinated against COVID-19 with 2 doses 2 months ago. 1. New onset CHF: Continue care on telemetry. He continues to diurese cardiology consult input noted. Daily weights. Continue on Lasix resume patient's home beta-gay . X-ray notable for pulmonary edema with pleural effusion, BNP markedly elevated, troponin normal, decreased kidney function. IV furosemide given emergency department and continued in house. Will monitor renal function cardiac cath is planned for 07/24/2021. Plan is for possible ischemic work-up when clinically stable. 2. KOLTON: Suspect vasomotor nephropathy with recent use furosemide, patient will need supervised monitor diuresis, obtain nephrology eval, further work up per them 3. Abnormal liver function: tests suspect fatty liver disease versus alcohol liver disease, patient recently stopped drinking alcohol. We will continue to monitor closely. Monitor for withdrawal symptoms 4. Hyperkalemia: We will give a dose of Kayexalate. Patient was on potassium outpatient we will discontinue this. Anticipate that this will also correct and may be become hypokalemic with Lasix but will monitor closely. 5. Hyponatremia: Continue to monitor 6. severe obesity: BMI 47, patient is currently 319 pounds. He explained that he weighed 185 pounds in high school. Provided education regarding lifestyle modification. 7. Hypertension: Patient was started on Diovan and hydralazine 07/21/21. I will increase hydralazine to 50 mg twice daily today. His blood pressure still elevated especially diastolic. Extensive counseling provided to the patient he verbalized understanding Continue inpatient care for further diuresis. Monitor electrolytes and replace as needed anticipate ischemic work-up inpatient which includes a cardiac catheterization History Interval history: Patient seen and examined this morning reports that he is feeling better. Continues to diurese appropriately. Hospitalist Physical - Physical exam Narrative exam: VITAL SIGNS: Reviewed. GENERAL: The patient appears normally developed, morbidly obese, no distress vital signs as documented. HEAD: No signs of head trauma. EYES: Pupils are equal. Extraocular motions intact. EARS: Hearing grossly intact. MOUTH: Oropharynx is normal. NECK: No adenopathy, no JVD. CHEST: Chest with diminished breath sounds bilaterally. No wheezes, rales, or rhonchi. CARDIAC: Regular rate and rhythm. S1 and S2, without murmurs, gallops, or rubs . VASCULAR: No Edema. Peripheral pulses normal and equal in all extremities. ABDOMEN: Large pannus soft, non tender and non distended. No rebound or guarding, and no masses palpated. Bowel Sounds normal. MUSCULOSKELETAL: Good range of motion of all major joints. Extremities without clubbing, cyanosis. +2 pitting edema. NEUROLOGIC EXAM: Alert and oriented x 3 No focal sensory or strength deficits. Speech normal. Follows commands. PSYCHIATRIC: Mood normal. SKIN: detail exam as documented in skin assessment - Constitutional Vitals: Temp Pulse Resp BP Pulse Ox 98.9 F 91 H 19 143/107 99 07/22/21 03:34 07/22/21 05:00 07/22/21 03:34 07/22/21 05:00 07/22/21 03:34 General appearance: Present: no acute distress HEART Score - HEART Score Troponin: Troponin T < 0.010 ng/mL (0.00-0.029) 07/19/21 06:54 Results - Labs CBC & Chem 7: 07/22/21 05:21 07/22/21 05:21 Labs: Laboratory Last Values WBC 4.4 K/mm3 (4.5-11.0) L 07/22/21 05:21 RBC 4.89 M/mm3 (3.65-5.03) 07/22/21 05:21 Hgb 15.2 gm/dl (11.8-15.2) 07/22/21 05:21 Hct 44.6 % (35.5-45.6) 07/22/21 05:21 MCV 91 fl (84-94) 07/22/21 05:21 MCH 31 pg (28-32) 07/22/21 05:21 MCHC 34 % (32-34) 07/22/21 05:21 RDW 15.2 % (13.2-15.2) 07/22/21 05:21 Plt Count 203 K/mm3 (140-440) 07/22/21 05:21 Chambers % (Auto) Label Printer 07/20/21 05:19 Baso % (Auto) Label Printer 07/19/21 06:54 Add Manual Diff Complete 07/20/21 05:19 Total Counted 100 07/20/21 05:19 Seg Neuts % (Manual) 63.0 % (40.0-70.0) 07/20/21 05:19 Lymphocytes % (Manual) 21.0 % (13.4-35.0) 07/20/21 05:19 Reactive Lymphs % (Man) 3.0 % 07/20/21 05:19 Monocytes % (Manual) 10.0 % (0.0-7.3) H 07/20/21 05:19 Basophils % (Manual) 1.0 % (0.0-1.8) 07/20/21 05:19 Myelocytes % 1.0 % 07/20/21 05:19 Promyelocytes % 1.0 % 07/20/21 05:19 Nucleated RBC % Not Reportable 07/20/21 05:19 Seg Neutrophils # Man 4.0 K/mm3 (1.8-7.7) 07/20/21 05:19 Band Neutrophils # 0.0 K/mm3 07/20/21 05:19 Lymphocytes # (Manual) 1.3 K/mm3 (1.2-5.4) 07/20/21 05:19 Abs React Lymphs (Man) 0.2 K/mm3 07/20/21 05:19 Monocytes # (Manual) 0.6 K/mm3 (0.0-0.8) 07/20/21 05:19 Eosinophils # (Manual) 0.0 K/mm3 (0.0-0.4) 07/20/21 05:19 Basophils # (Manual) 0.1 K/mm3 (0.0-0.1) 07/20/21 05:19 Metamyelocytes # 0.0 K/mm3 07/20/21 05:19 Myelocytes # 0.1 K/mm3 07/20/21 05:19 Promyelocytes # 0.1 K/mm3 07/20/21 05:19 Blast Cells # 0.0 K/mm3 07/20/21 05:19 WBC Morphology Not Reportable 07/20/21 05:19 Hypersegmented Neuts Not Reportable 07/20/21 05:19 Hyposegmented Neuts Not Reportable 07/20/21 05:19 Hypogranular Neuts Not Reportable 07/20/21 05:19 Smudge Cells Not Reportable 07/20/21 05:19 Toxic Granulation Not Reportable 07/20/21 05:19 Toxic Vacuolation Not Reportable 07/20/21 05:19 Dohle Bodies Not Reportable 07/20/21 05:19 Pelger-Huet Anomaly Not Reportable 07/20/21 05:19 Letitia Rods Not Reportable 07/20/21 05:19 Platelet Estimate Consistent w auto 07/20/21 05:19 Clumped Platelets Not Reportable 07/20/21 05:19 Plt Clumps, EDTA Not Reportable 07/20/21 05:19 Large Platelets Not Reportable 07/20/21 05:19 Giant Platelets Not Reportable 07/20/21 05:19 Platelet Satelliting Not Reportable 07/20/21 05:19 Plt Morphology Comment Not Reportable 07/20/21 05:19 RBC Morphology Not Reportable 07/20/21 05:19 Dimorphic RBCs Not Reportable 07/20/21 05:19 Polychromasia Not Reportable 07/20/21 05:19 Hypochromasia Not Reportable 07/20/21 05:19 Poikilocytosis Not Reportable 07/20/21 05:19 Anisocytosis Not Reportable 07/20/21 05:19 Microcytosis Not Reportable 07/20/21 05:19 Macrocytosis Not Reportable 07/20/21 05:19 Spherocytes Not Reportable 07/20/21 05:19 Pappenheimer Bodies Not Reportable 07/20/21 05:19 Sickle Cells Not Reportable 07/20/21 05:19 Target Cells Not Reportable 07/20/21 05:19 Tear Drop Cells Not Reportable 07/20/21 05:19 Ovalocytes Not Reportable 07/20/21 05:19 Helmet Cells Not Reportable 07/20/21 05:19 [place] Bodies Not Reportable 07/20/21 05:19 [place] Rings Not Reportable 07/20/21 05:19 [place] Cells Not Reportable 07/20/21 05:19 Bite Cells Not Reportable 07/20/21 05:19 Crenated Cell Not Reportable 07/20/21 05:19 Elliptocytes Not Reportable 07/20/21 05:19 Acanthocytes (Spur) Not Reportable 07/20/21 05:19 Rouleaux Not Reportable 07/20/21 05:19 Hemoglobin C Crystals Not Reportable 07/20/21 05:19 Schistocytes Not Reportable 07/20/21 05:19 Malaria parasites Not Reportable 07/20/21 05:19 Raul Bodies Not Reportable 07/20/21 05:19 Hem Pathologist Commnt No 07/20/21 05:19 Sodium 141 mmol/L (137-145) 07/22/21 05:21 Potassium 3.5 mmol/L (3.6-5.0) L 07/22/21 05:21 Chloride 97.2 mmol/L (98-107) L 07/22/21 05:21 Carbon Dioxide 27 mmol/L (22-30) 07/22/21 05:21 Anion Gap 20 mmol/L 07/22/21 05:21 BUN 14 mg/dL (9-20) 07/22/21 05:21 Creatinine 1.3 mg/dL (0.8-1.3) 07/22/21 05:21 Estimated GFR > 60 ml/min 07/22/21 05:21 BUN/Creatinine Ratio 11 % 07/22/21 05:21 Glucose 101 mg/dL (75-100) H 07/22/21 05:21 POC Glucose 135 mg/dL (70-105) H 07/21/21 23:01 Calcium 8.8 mg/dL (8.4-10.2) 07/22/21 05:21 Magnesium 1.70 mg/dL (1.7-2.3) 07/22/21 05:21 Total Bilirubin 2.70 mg/dL (0.1-1.2) H 07/19/21 06:54 AST 98 units/L (5-40) H 07/19/21 06:54 ALT 94 units/L (7-56) H 07/19/21 06:54 Alkaline Phosphatase 121 units/L (35-129) 07/19/21 06:54 Troponin T < 0.010 ng/mL (0.00-0.029) 07/19/21 06:54 NT-Pro-B Natriuret Pep 7537 pg/mL (0-450) H 07/19/21 06:54 Total Protein 7.8 g/dL (6.3-8.2) 07/19/21 06:54 Albumin 4.2 g/dL (3.9-5) 07/19/21 06:54 Albumin/Globulin Ratio 1.2 % 07/19/21 06:54 Triglycerides 94 mg/dL (2-149) 07/19/21 10:21 Cholesterol 209 mg/dL (50-199) H 07/19/21 10:21 LDL Cholesterol Direct 154 mg/dL (50-130) H 07/19/21 10:21 HDL Cholesterol 42 mg/dL (40-59) 07/19/21 10:21 Cholesterol/HDL Ratio 4.97 % 07/19/21 10:21 Urine Color Straw (Yellow) 07/19/21 20:32 Urine Turbidity Clear (Clear) 07/19/21 20:32 Urine pH 5.0 (5.0-7.0) 07/19/21 20:32 Ur Specific [place] 1.004 (1.003-1.030) 07/19/21 20:32 Urine Protein <15 mg/dl mg/dL (Negative) 07/19/21 20:32 Urine Glucose (UA) Neg mg/dL (Negative) 07/19/21 20:32 Urine Ketones Neg mg/dL (Negative) 07/19/21 20:32 Urine Blood Neg (Negative) 07/19/21 20:32 Urine Nitrite Neg (Negative) 07/19/21 20:32 Urine Bilirubin Neg (Negative) 07/19/21 20:32 Urine Urobilinogen < 2.0 mg/dL (<2.0) 07/19/21 20:32 Ur Leukocyte Esterase Neg (Negative) 07/19/21 20:32 Urine WBC (Auto) < 1.0 /HPF (0.0-6.0) 07/19/21 20:32 Urine RBC (Auto) 2.0 /HPF (0.0-6.0) 07/19/21 20:32 Urine Creatinine 23.6 mg/dL (0.1-20.0) H 07/19/21 20:05 Protein/Creatinin Ratio 0.72 07/19/21 20:05 Urine Sodium 49 mmol/L 07/19/21 20:05 Urine Total Protein 17 mg/dL (5-11.8) H 07/19/21 20:05 [place]/IV: Voiding Method Toilet Active Medications - Current Medications Current Medications: Generic Name Dose Route Start Last Admin Trade Name Freq PRN Reason Stop Dose Admin Acetaminophen 650 mg 07/19/21 10:30 Acetaminophen 325 Mg Tab PO Q4H PRN Pain MILD(1-3)/Fever >100.5/RUIZ Albuterol 2.5 mg 07/19/21 11:00 Albuterol 2.5 Mg/3 Ml Nebu IH Q3HRT PRN Shortness Of Breath Dextrose 50 ml 07/19/21 10:00 Dextrose 50% In Water (25gm) 50 Ml Syringe IV Q30MIN PRN Hypoglycemia Protocol Furosemide 40 mg 07/20/21 22:00 07/21/21 21:31 Furosemide 40 Mg/4 Ml Inj IV 40 mg BID FELIPE Administration Hydralazine HCl 10 mg 07/19/21 14:00 07/21/21 23:44 Hydralazine 20 Mg/1 Ml Inj IV 10 mg Q4HR PRN Administration Hypertension Hydralazine HCl 25 mg 07/21/21 22:00 07/22/21 05:00 Hydralazine 25 Mg Tab PO 25 mg Q8HR FELIPE Administration Magnesium Sulfate 1 gm/ Sodium 52 mls @ 52 mls/hr 07/22/21 08:22 Chloride IV 07/22/21 09:21 ONCE ONE Insulin Human Lispro 0 unit 07/19/21 11:30 07/21/21 22:44 Insulin Lispro 100 Unit/Ml SUB-Q Not Given ACHS FELIPE Protocol Metoprolol Tartrate 100 mg 07/20/21 10:00 07/21/21 09:20 Metoprolol Tartrate 100 Mg Tab PO 100 mg DAILY FELIPE Administration Naloxone HCl 0.1 mg 07/19/21 10:30 Naloxone 0.4 Mg/1 Ml Inj IV Q2MIN PRN Res Rate </= 8 or 02 SAT < 92% Ondansetron HCl 4 mg 07/19/21 11:00 Ondansetron 4 Mg/2 Ml Inj IV Q8H PRN Nausea And Vomiting Oxycodone/Acetaminophen 1 tab 07/19/21 11:00 07/21/21 09:05 Oxycodone /Acetaminophen 5-325mg Tab PO 1 tab Q6H PRN Administration Pain, Moderate (4-6) Pantoprazole Sodium 40 mg 07/20/21 10:00 07/21/21 09:20 Pantoprazole 40 Mg Tab PO 40 mg QDAY FELIPE Administration Potassium Chloride 40 meq 07/22/21 08:22 Potassium Chloride Er 20 Meq Tab PO 07/22/21 08:23 ONCE ONE Sodium Chloride 10 ml 07/19/21 10:00 07/21/21 21:33 Sodium Chloride 0.9% 10 Ml Flush Syringe IV 10 ml BID FELIPE Administration Sodium Chloride 10 ml 07/19/21 09:54 Sodium Chloride 0.9% 10 Ml Flush Syringe IV PRN PRN LINE FLUSH Valsartan 160 mg 07/21/21 10:00 07/21/21 21:32 Valsartan 160mg Tab PO 160 mg BID FELIPE Administration Nutrition/Malnutrition Assess - Dietary Evaluation Nutrition/Malnutrition Findings: Nutrition Notes Start: 07/19/21 12:12 Freq: Status: Active Protocol: Document 07/19/21 12:12 VALDO (Rec: 07/19/21 12:13 VALDO [id number]) Nutrition Notes Need for Assessment generated from: MD Order,Education Initial or Follow up Brief Note Current Diagnosis Hypertension,Heart Failure Other Pertinent Diagnosis Chest pain, RICHAR Current Diet Cardiac Subjective/Other Information RD consulted for diet education. Pt in ED at this time. Nutrition Intervention Follow-Up By: 07/24/21 Additional Comments F/U: transfer to medical floor , diet education needs
[2021-07-22] MEDS ORDERED: POTASSIUM CHLORIDE ER 20 MEQ TAB PO SCH (09:00)
[2021-07-22] MEDS ORDERED: MAGNESIUM SULFATE 1 GM in SODIUM CHLORIDE 0.9% 50 ML IV ONE (09:30)
[2021-07-22] MEDS: PANTOPRAZOLE 40 MG TAB PO SCH (10:48)
[2021-07-22] MEDS: FUROSEMIDE 40 MG/4 ML INJ IV SCH ×2 (10:48→21:50)
[2021-07-22] MEDS: METOPROLOL TARTRATE 100 MG TAB PO SCH ×2 (10:48→21:51)
[2021-07-22] MEDS: VALSARTAN 160MG TAB PO SCH ×2 (10:48→21:51)
[2021-07-22] MEDS: INSULIN LISPRO 100 UNIT/ML SUB-Q SCH (11:08)
--- NOTE | 2021-07-22 11:11 | Progress Note ---
Assessment and Plan 46-year-old male with acute systolic heart failure history of EtOH abuse mildly abnormal LFTs will monitor increase metoprolol to twice daily dosing continue valsartan 160 mg twice daily agree with hydralazine 50mg 3 times a day for better BP control continue IV diuretics anticipated cardiac cath on Saturday for ischemic evaluation - Patient Problems (1) Abnormal liver function test Current Visit: Yes Status: Acute (2) Acute HFrEF (heart failure with reduced ejection fraction) Current Visit: Yes Status: Acute (3) Acute kidney injury Current Visit: Yes Status: Acute (4) Cardiomyopathy Current Visit: Yes Status: Acute Qualifiers: Cardiomyopathy type: alcoholic Qualified Code(s): I42.6 - Alcoholic cardiomyopathy (5) New onset of congestive heart failure Current Visit: Yes Status: Acute (6) Severe obesity Current Visit: Yes Status: Acute (7) HLD (hyperlipidemia) Current Visit: Yes Status: Chronic Qualifiers: Hyperlipidemia type: mixed hyperlipidemia Qualified Code(s): E78.2 - Mixed hyperlipidemia (8) HTN (hypertension) Current Visit: Yes Status: Chronic Qualifiers: Hypertension type: primary hypertension Qualified Code(s): I10 - Essential (primary) hypertension Subjective Date of service: 07/22/21 Principal diagnosis: Acute HFrEF Interval history: sob is better but swelling in legs Objective Vital Signs Temp Pulse Resp BP Pulse Ox 07/22/21 05:00 91 H 143/107 07/22/21 03:34 98.9 F 91 H 19 148/107 99 07/21/21 23:44 96 H 174/114 07/21/21 23:04 98.5 F 96 H 19 174/114 99 07/21/21 21:32 93 H 164/108 07/21/21 19:23 97.9 F 93 H 20 164/108 99 07/21/21 16:14 82 97 07/21/21 14:00 82 07/21/21 12:29 98.6 F 85 20 148/102 99 - Physical Examination General: No Apparent Distress HEENT: Positive: EOMI, Normocephaly Neck: Positive: neck supple, trachea midline Cardiac: Positive: Reg Rate and Rhythm Lungs: Positive: clear to auscultation Neuro: Positive: Grossly Intact Abdomen: Positive: Soft. Negative: Tender Skin: Negative: Rash Musculoskeletal: No Pain Extremities: Present: lower extr. pulses, +2 Edema (BLE), warm - Labs and Meds CBC 07/22/21 Range/Units 05:21 WBC 4.4 L (4.5-11.0) K/mm3 RBC 4.89 (3.65-5.03) M/mm3 Hgb 15.2 (11.8-15.2) gm/dl Hct 44.6 (35.5-45.6) % Plt Count 203 (140-440) K/mm3 Comprehensive Metabolic Panel 07/22/21 Range/Units 05:21 Sodium 141 (137-145) mmol/L Potassium 3.5 L (3.6-5.0) mmol/L Chloride 97.2 L (98-107) mmol/L Carbon Dioxide 27 (22-30) mmol/L BUN 14 (9-20) mg/dL Creatinine 1.3 (0.8-1.3) mg/dL Glucose 101 H (75-100) mg/dL Calcium 8.8 (8.4-10.2) mg/dL - Imaging and Cardiology EKG: report reviewed, image reviewed Echo: report reviewed - Telemetry EKG Rhythm: Sinus Rhythm - EKG Sinus rhythms and dysrhythmias: sinus rhythm
--- NOTE | 2021-07-22 14:04 | Progress Note ---
Assessment and Plan 1. Acute kidney injury: KOLTON in the setting of decompensated CHF. UA bland. Renal US negative. Monitor renal function. Creatinine level is better. Avoid nephrotoxic agents. Meds dosage based on GFR. 2. FEN: Hyperkalemia, improved. Hyponatremia, in the setting of CHF, improved, monitor. Volume overload, diuretics, monitor. Monitor lytes and volume status. 3. New onset CHF: Telemetry. Echo EF 15-20%. Followed by Cards. Daily weights, strict I/O. IV Lasix and beta-gay. 4. Abnormal liver function: 2/2 fatty liver disease vs alcohol liver disease. Monitor. 5. Class 3 obesity: BMI 47. Weight loss advised. 6. Elevated bl glu: A1C ordered. Will sign off. Subjective: Patient was seen and examined at the bedside. Examination: General appearance: well-developed, appears stated age, obese, on RA HEENT: atraumatic Neck: trachea midline Respiratory: diminished breath sounds Heart: S1S2, regular, no murmur Abdomen: soft, obese, bowel sounds heard, NT Integumentary: no rash Neurologic: AO, non-focal Ext: 2+ LE edema Subjective Date of service: 07/22/21 Principal diagnosis: Acute HFrEF Objective - Vital Signs Vital signs: Vital Signs - 12hr 07/22/21 07/22/21 07/22/21 03:34 05:00 07:34 Temperature 98.9 F 98.6 F Pulse Rate 91 H 91 H 92 H Pulse Rate [ Apical] Respiratory 19 20 Rate Blood Pressure 148/107 143/107 135/87 O2 Sat by Pulse 99 99 Oximetry 07/22/21 07/22/21 10:59 12:19 Temperature Pulse Rate 104 H 85 Pulse Rate [ 85 Apical] Respiratory 20 Rate Blood Pressure 171/113 O2 Sat by Pulse 98 98 Oximetry - Lab 07/22/21 05:21 07/22/21 05:21 Most recent lab results Calcium 8.8 mg/dL (8.4-10.2) 07/22/21 05:21 Magnesium 1.70 mg/dL (1.7-2.3) 07/22/21 05:21 Urine Creatinine 23.6 mg/dL (0.1-20.0) H 07/19/21 20:05 Urine Sodium 49 mmol/L 07/19/21 20:05 Urine Total Protein 17 mg/dL (5-11.8) H 07/19/21 20:05 Medications & Allergies - Medications Allergies/Adverse Reactions: Allergies No Known Allergies Allergy (Unverified 06/14/18 09:41) Home Medications: Home Medications Medication Instructions Recorded Confirmed Last Taken Type Furosemide [Lasix TAB] 40 mg PO BID 07/19/21 07/19/21 Unknown History Metoprolol [Lopressor] 100 mg PO DAILY 07/19/21 07/19/21 Unknown History Pantoprazole [Protonix] 40 mg PO QDAY 07/19/21 07/19/21 Unknown History Potassium Chloride [K-Dur] 40 meq PO BID 07/19/21 07/19/21 Unknown History Active Medications: Generic Name Dose Route Start Last Admin Trade Name Freq PRN Reason Stop Dose Admin Acetaminophen 650 mg 07/19/21 10:30 Acetaminophen 325 Mg Tab PO Q4H PRN Pain MILD(1-3)/Fever >100.5/RUIZ Albuterol 2.5 mg 07/19/21 11:00 Albuterol 2.5 Mg/3 Ml Nebu IH Q3HRT PRN Shortness Of Breath Dextrose 50 ml 07/19/21 10:00 Dextrose 50% In Water (25gm) 50 Ml Syringe IV Q30MIN PRN Hypoglycemia Protocol Furosemide 40 mg 07/20/21 22:00 07/22/21 10:48 Furosemide 40 Mg/4 Ml Inj IV 40 mg BID FELIPE Administration Hydralazine HCl 10 mg 07/19/21 14:00 07/21/21 23:44 Hydralazine 20 Mg/1 Ml Inj IV 10 mg Q4HR PRN Administration Hypertension Hydralazine HCl 50 mg 07/22/21 14:00 Hydralazine 25 Mg Tab PO Q8HR FELIPE Metoprolol Tartrate 100 mg 07/22/21 22:00 Metoprolol Tartrate 100 Mg Tab PO BID FELIPE Naloxone HCl 0.1 mg 07/19/21 10:30 Naloxone 0.4 Mg/1 Ml Inj IV Q2MIN PRN Res Rate </= 8 or 02 SAT < 92% Ondansetron HCl 4 mg 07/19/21 11:00 Ondansetron 4 Mg/2 Ml Inj IV Q8H PRN Nausea And Vomiting Oxycodone/Acetaminophen 1 tab 07/19/21 11:00 07/21/21 09:05 Oxycodone /Acetaminophen 5-325mg Tab PO 1 tab Q6H PRN Administration Pain, Moderate (4-6) Pantoprazole Sodium 40 mg 07/20/21 10:00 07/22/21 10:48 Pantoprazole 40 Mg Tab PO 40 mg QDAY FELIPE Administration Sodium Chloride 10 ml 07/19/21 10:00 07/22/21 10:49 Sodium Chloride 0.9% 10 Ml Flush Syringe IV 10 ml BID FELIPE Administration Sodium Chloride 10 ml 07/19/21 09:54 Sodium Chloride 0.9% 10 Ml Flush Syringe IV PRN PRN LINE FLUSH Valsartan 160 mg 07/21/21 10:00 07/22/21 10:48 Valsartan 160mg Tab PO 160 mg BID FELIPE Administration
[2021-07-23] MEDS: hydrALAZINE 25 MG TAB PO SCH (05:14)
[2021-07-23 06:24] LABS: Hematocrit 43.3 % (35.5-45.6); Hemoglobin 14.8 gm/dl (11.8-15.2); Mean Corpuscular HGB Conc 34 % (32-34); Mean Corpuscular Volume 90 fl (84-94); Platelet Count 218 K/mm3 (140-440); Red Blood Count 4.79 M/mm3 (3.65-5.03); Red Cell Distribution Width 15.1 % (13.2-15.2)
[2021-07-23 06:40] LABS: BUN/Creatinine Ratio 11; Blood Urea Nitrogen 14 mg/dL (9-20); Calcium 8.6 mg/dL (8.4-10.2); Hemolysis Index 3
[2021-07-23] MEDS: VALSARTAN 160MG TAB PO SCH ×2 (10:17→21:58)
[2021-07-23] MEDS: METOPROLOL TARTRATE 100 MG TAB PO SCH ×2 (10:17→21:58)
[2021-07-23] MEDS: FUROSEMIDE 40 MG/4 ML INJ IV SCH ×2 (10:17→21:58)
[2021-07-23] MEDS: PANTOPRAZOLE 40 MG TAB PO SCH (10:17)
[2021-07-23] MEDS ORDERED: hydrALAZINE 25 MG TAB PO SCH (10:19)
--- NOTE | 2021-07-23 10:43 | Progress Note ---
Assessment and Plan Assessment and plan: Patient is a 46-year-old male with past medical history of GERD recently diagnosed CHF hypertension morbid obesity with BMI of 47.3. The patient reports that he has in the last 2 months quit alcohol use which he drank heavily in the past but never required hospitalization or had any seizure-like activity. In the last 2 months also he has noted worsening shortness of breath with exertion. 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 He presents to the ED with worsening shortness of breath he was recently seen by a physician Dr. Jered Mccloud in [facility] where and was started on medications listed below. He denies any nausea vomiting or diarrhea he denies any fever. He reports that he was vaccinated against COVID-19 with 2 doses 2 months ago. 1. New onset CHF: Continue care on telemetry. He continues to diurese cardiology consult input noted. Daily weights. Continue on Lasix resume patient's home beta-gay . X-ray notable for pulmonary edema with pleural effusion, BNP markedly elevated, troponin normal, decreased kidney function. IV furosemide given emergency department and continued in house. Will monitor renal function cardiac cath is planned for 07/24/2021. Plan is for possible ischemic work-up when clinically stable. 2. KOLTON: Suspect vasomotor nephropathy with recent use furosemide, patient will need supervised monitor diuresis, obtain nephrology eval, further work up per them 3. Abnormal liver function: tests suspect fatty liver disease versus alcohol liver disease, patient recently stopped drinking alcohol. We will continue to monitor closely. Monitor for withdrawal symptoms 4. Hyperkalemia: We will give a dose of Kayexalate. Patient was on potassium outpatient we will discontinue this. Anticipate that this will also correct and may be become hypokalemic with Lasix but will monitor closely. 5. Hyponatremia: Continue to monitor 6. severe obesity: BMI 47, patient is currently 319 pounds. He explained that he weighed 185 pounds in high school. Provided education regarding lifestyle modification. 7. Hypertension: Patient was started on Diovan and hydralazine 07/21/21. I will increase hydralazine to 50 mg twice daily today. His blood pressure still elevated especially diastolic. Extensive counseling provided to the patient he verbalized understanding 8. Monitor for skin blister left lower extremity. We will no aspirin ointment. Continue inpatient care for further diuresis. Monitor electrolytes and replace as needed anticipate ischemic work-up inpatient which includes a cardiac catheterization History Interval history: Patient seen and examined this morning reports that he is feeling better. Mild blister noted on the left lower extremity, no erythema no warmth continues to diurese appropriately. Hospitalist Physical - Physical exam Narrative exam: VITAL SIGNS: Reviewed. GENERAL: The patient appears normally developed, morbidly obese, no distress vital signs as documented. HEAD: No signs of head trauma. EYES: Pupils are equal. Extraocular motions intact. EARS: Hearing grossly intact. MOUTH: Oropharynx is normal. NECK: No adenopathy, no JVD. CHEST: Chest with diminished breath sounds bilaterally. No wheezes, rales, or rhonchi. CARDIAC: Regular rate and rhythm. S1 and S2, without murmurs, gallops, or rubs. VASCULAR: No Edema. Peripheral pulses normal and equal in all extremities. ABDOMEN: Large pannus soft, non tender and non distended. No rebound or guarding, and no masses palpated. Bowel Sounds normal. MUSCULOSKELETAL: Good range of motion of all major joints. Extremities without clubbing, cyanosis. +2 pitting edema. With mild discoloration and blister noted NEUROLOGIC EXAM: Alert and oriented x 3 No focal sensory or strength defi cits. Speech normal. Follows commands. PSYCHIATRIC: Mood normal. SKIN: detail exam as documented in skin assessment - Constitutional Vitals: Temp Pulse Resp BP Pulse Ox 97.6 F 81 18 143/99 95 07/23/21 08:00 07/23/21 08:00 07/23/21 08:00 07/23/21 08:00 07/23/21 08:00 General appearance: Present: no acute distress HEART Score - HEART Score Troponin: Troponin T < 0.010 ng/mL (0.00-0.029) 07/19/21 06:54 Results - Labs CBC & Chem 7: 07/23/21 06:02 07/23/21 06:02 Labs: Laboratory Last Values WBC 4.2 K/mm3 (4.5-11.0) L 07/23/21 06:02 RBC 4.79 M/mm3 (3.65-5.03) 07/23/21 06:02 Hgb 14.8 gm/dl (11.8-15.2) 07/23/21 06:02 Hct 43.3 % (35.5-45.6) 07/23/21 06:02 MCV 90 fl (84-94) 07/23/21 06:02 MCH 31 pg (28-32) 07/23/21 06:02 MCHC 34 % (32-34) 07/23/21 06:02 RDW 15.1 % (13.2-15.2) 07/23/21 06:02 Plt Count 218 K/mm3 (140-440) 07/23/21 06:02 Casey % (Auto) Nursing Service Administrator 07/20/21 05:19 Baso % (Auto) Nursing Service Administrator 07/19/21 06:54 Add Manual Diff Complete 07/20/21 05:19 Total Counted 100 07/20/21 05:19 Seg Neuts % (Manual) 63.0 % (40.0-70.0) 07/20/21 05:19 Lymphocytes % (Manual) 21.0 % (13.4-35.0) 07/20/21 05:19 Reactive Lymphs % (Man) 3.0 % 07/20/21 05:19 Monocytes % (Manual) 10.0 % (0.0-7.3) H 07/20/21 05:19 Basophils % (Manual) 1.0 % (0.0-1.8) 07/20/21 05:19 Myelocytes % 1.0 % 07/20/21 05:19 Promyelocytes % 1.0 % 07/20/21 05:19 Nucleated RBC % Not Reportable 07/20/21 05:19 Seg Neutrophils # Man 4.0 K/mm3 (1.8-7.7) 07/20/21 05:19 Band Neutrophils # 0.0 K/mm3 07/20/21 05:19 Lymphocytes # (Manual) 1.3 K/mm3 (1.2-5.4) 07/20/21 05:19 Abs React Lymphs (Man) 0.2 K/mm3 07/20/21 05:19 Monocytes # (Manual) 0.6 K/mm3 (0.0-0.8) 07/20/21 05:19 Eosinophils # (Manual) 0.0 K/mm3 (0.0-0.4) 07/20/21 05:19 Basophils # (Manual) 0.1 K/mm3 (0.0-0.1) 07/20/21 05:19 Metamyelocytes # 0.0 K/mm3 07/20/21 05:19 Myelocytes # 0.1 K/mm3 07/20/21 05:19 Promyelocytes # 0.1 K/mm3 07/20/21 05:19 Blast Cells # 0.0 K/mm3 07/20/21 05:19 WBC Morphology Not Reportable 07/20/21 05:19 Hypersegmented Neuts Not Reportable 07/20/21 05:19 Hyposegmented Neuts Not Reportable 07/20/21 05:19 Hypogranular Neuts Not Reportable 07/20/21 05:19 Smudge Cells Not Reportable 07/20/21 05:19 Toxic Granulation Not Reportable 07/20/21 05:19 Toxic Vacuolation Not Reportable 07/20/21 05:19 Dohle Bodies Not Reportable 07/20/21 05:19 Pelger-Huet Anomaly Not Reportable 07/20/21 05:19 Letitia Rods Not Reportable 07/20/21 05:19 Platelet Estimate Consistent w auto 07/20/21 05:19 Clumped Platelets Not Reportable 07/20/21 05:19 Plt Clumps, EDTA Not Reportable 07/20/21 05:19 Large Platelets Not Reportable 07/20/21 05:19 Giant Platelets Not Reportable 07/20/21 05:19 Platelet Satelliting Not Reportable 07/20/21 05:19 Plt Morphology Comment Not Reportable 07/20/21 05:19 RBC Morphology Not Reportable 07/20/21 05:19 Dimorphic RBCs Not Reportable 07/20/21 05:19 Polychromasia Not Reportable 07/20/21 05:19 Hypochromasia Not Reportable 07/20/21 05:19 Poikilocytosis Not Reportable 07/20/21 05:19 Anisocytosis Not Reportable 07/20/21 05:19 Microcytosis Not Reportable 07/20/21 05:19 Macrocytosis Not Reportable 07/20/21 05:19 Spherocytes Not Reportable 07/20/21 05:19 Pappenheimer Bodies Not Reportable 07/20/21 05:19 Sickle Cells Not Reportable 07/20/21 05:19 Target Cells Not Reportable 07/20/21 05:19 Tear Drop Cells Not Reportable 07/20/21 05:19 Ovalocytes Not Reportable 07/20/21 05:19 Helmet Cells Not Reportable 07/20/21 05:19 Morales-Pollock Bodies Not Reportable 07/20/21 05:19 Guston Rings Not Reportable 07/20/21 05:19 Breezy Cells Not Reportable 07/20/21 05:19 Bite Cells Not Reportable 07/20/21 05:19 Crenated Cell Not Reportable 07/20/21 05:19 Elliptocytes Not Reportable 07/20/21 05:19 Acanthocytes (Spur) Not Reportable 07/20/21 05:19 Rouleaux Not Reportable 07/20/21 05:19 Hemoglobin C Crystals Not Reportable 07/20/21 05:19 Schistocytes Not Reportable 07/20/21 05:19 Malaria parasites Not Reportable 07/20/21 05:19 Raul Bodies Not Reportable 07/20/21 05:19 Hem Pathologist Commnt No 07/20/21 05:19 Sodium 140 mmol/L (137-145) 07/23/21 06:02 Potassium 3.5 mmol/L (3.6-5.0) L 07/23/21 06:02 Chloride 98.6 mmol/L (98-107) 07/23/21 06:02 Carbon Dioxide 28 mmol/L (22-30) 07/23/21 06:02 Anion Gap 17 mmol/L 07/23/21 06:02 BUN 14 mg/dL (9-20) 07/23/21 06:02 Creatinine 1.3 mg/dL (0.8-1.3) 07/23/21 06:02 Estimated GFR > 60 ml/min 07/23/21 06:02 BUN/Creatinine Ratio 11 % 07/23/21 06:02 Glucose 108 mg/dL (75-100) H 07/23/21 06:02 POC Glucose 135 mg/dL (70-105) H 07/21/21 23:01 Calcium 8.6 mg/dL (8.4-10.2) 07/23/21 06:02 Magnesium 1.70 mg/dL (1.7-2.3) 07/22/21 05:21 Total Bilirubin 2.70 mg/dL (0.1-1.2) H 07/19/21 06:54 AST 98 units/L (5-40) H 07/19/21 06:54 ALT 94 units/L (7-56) H 07/19/21 06:54 Alkaline Phosphatase 121 units/L (35-129) 07/19/21 06:54 Troponin T < 0.010 ng/mL (0.00-0.029) 07/19/21 06:54 NT-Pro-B Natriuret Pep 7537 pg/mL (0-450) H 07/19/21 06:54 Total Protein 7.8 g/dL (6.3-8.2) 07/19/21 06:54 Albumin 4.2 g/dL (3.9-5) 07/19/21 06:54 Albumin/Globulin Ratio 1.2 % 07/19/21 06:54 Triglycerides 94 mg/dL (2-149) 07/19/21 10:21 Cholesterol 209 mg/dL (50-199) H 07/19/21 10:21 LDL Cholesterol Direct 154 mg/dL (50-130) H 07/19/21 10:21 HDL Cholesterol 42 mg/dL (40-59) 07/19/21 10:21 Cholesterol/HDL Ratio 4.97 % 07/19/21 10:21 Urine Color Straw (Yellow) 07/19/21 20:32 Urine Turbidity Clear (Clear) 07/19/21 20:32 Urine pH 5.0 (5.0-7.0) 07/19/21 20:32 Ur Specific Duncan 1.004 (1.003-1.030) 07/19/21 20:32 Urine Protein <15 mg/dl mg/dL (Negative) 07/19/21 20:32 Urine Glucose (UA) Neg mg/dL (Negative) 07/19/21 20:32 Urine Ketones Neg mg/dL (Negative) 07/19/21 20:32 Urine Blood Neg (Negative) 07/19/21 20:32 Urine Nitrite Neg (Negative) 07/19/21 20:32 Urine Bilirubin Neg (Negative) 07/19/21 20:32 Urine Urobilinogen < 2.0 mg/dL (<2.0) 07/19/21 20:32 Ur Leukocyte Esterase Neg (Negative) 07/19/21 20:32 Urine WBC (Auto) < 1.0 /HPF (0.0-6.0) 07/19/21 20:32 Urine RBC (Auto) 2.0 /HPF (0.0-6.0) 07/19/21 20:32 Urine Creatinine 23.6 mg/dL (0.1-20.0) H 07/19/21 20:05 Protein/Creatinin Ratio 0.72 07/19/21 20:05 Urine Sodium 49 mmol/L 07/19/21 20:05 Urine Total Protein 17 mg/dL (5-11.8) H 07/19/21 20:05 Huerta/IV: Voiding Method Toilet Active Medications - Current Medications Current Medications: Generic Name Dose Route Start Last Admin Trade Name Freq PRN Reason Stop Dose Admin Acetaminophen 650 mg 07/19/21 10:30 Acetaminophen 325 Mg Tab PO Q4H PRN Pain MILD(1-3)/Fever >100.5/RUIZ Albuterol 2.5 mg 07/19/21 11:00 Albuterol 2.5 Mg/3 Ml Nebu IH Q3HRT PRN Shortness Of Breath Dextrose 50 ml 07/19/21 10:00 Dextrose 50% In Water (25gm) 50 Ml Syringe IV Q30MIN PRN Hypoglycemia Protocol Furosemide 40 mg 07/20/21 22:00 07/23/21 10:17 Furosemide 40 Mg/4 Ml Inj IV 40 mg BID FELIPE Administration Hydralazine HCl 10 mg 07/19/21 14:00 07/21/21 23:44 Hydralazine 20 Mg/1 Ml Inj IV 10 mg Q4HR PRN Administration Hypertension Hydralazine HCl 100 mg 07/23/21 10:19 Hydralazine 25 Mg Tab PO Q8HR FELIPE Isosorbide Mononitrate 30 mg 07/23/21 11:00 Isosorbide Mononitrate Er 30 Mg Tab PO QDAY FELIPE Metoprolol Tartrate 100 mg 07/22/21 22:00 07/23/21 10:17 Metoprolol Tartrate 100 Mg Tab PO 100 mg BID FELIPE Administration Naloxone HCl 0.1 mg 07/19/21 10:30 Naloxone 0.4 Mg/1 Ml Inj IV Q2MIN PRN Res Rate </= 8 or 02 SAT < 92% Ondansetron HCl 4 mg 07/19/21 11:00 Ondansetron 4 Mg/2 Ml Inj IV Q8H PRN Nausea And Vomiting Oxycodone/Acetaminophen 1 tab 07/19/21 11:00 07/21/21 09:05 Oxycodone /Acetaminophen 5-325mg Tab PO 1 tab Q6H PRN Administration Pain, Moderate (4-6) Pantoprazole Sodium 40 mg 07/20/21 10:00 07/23/21 10:17 Pantoprazole 40 Mg Tab PO 40 mg QDAY FELIPE Administration Potassium Chloride 40 meq 07/23/21 11:00 07/23/21 10:17 Potassium Chloride Er 20 Meq Tab PO 07/23/21 11:01 40 meq ONCE ONE Administration Sodium Chloride 10 ml 07/19/21 10:00 07/23/21 10:17 Sodium Chloride 0.9% 10 Ml Flush Syringe IV 10 ml BID FELIPE Administration Sodium Chloride 10 ml 07/19/21 09:54 Sodium Chloride 0.9% 10 Ml Flush Syringe IV PRN PRN LINE FLUSH Valsartan 160 mg 07/21/21 10:00 07/23/21 10:17 Valsartan 160mg Tab PO 160 mg BID FELIPE Administration Nutrition/Malnutrition Assess - Dietary Evaluation Nutrition/Malnutrition Findings: Nutrition Notes Start: 07/19/21 12:12 Freq: Status: Active Protocol: Document 07/19/21 12:12 VALDO (Rec: 07/19/21 12:13 VALDO [id number]) Nutrition Notes Need for Assessment generated from: MD Order,Education Initial or Follow up Brief Note Current Diagnosis Hypertension,Heart Failure Other Pertinent Diagnosis Chest pain, RICHAR Current Diet Cardiac Subjective/Other Information RD consulted for diet education. Pt in ED at this time. Nutrition Intervention Follow-Up By: 07/24/21 Additional Comments F/U: transfer to medical floor , diet education needs
[2021-07-23] MEDS ORDERED: POTASSIUM CHLORIDE ER 20 MEQ TAB PO ONE (11:00)
--- NOTE | 2021-07-23 11:38 | Progress Note ---
Assessment and Plan 46-year-old male with acute systolic heart failure history of EtOH abuse mildly abnormal LFTs will monitor increase metoprolol to twice daily dosing continue valsartan 160 mg twice daily increase hydralazine 100 mg 3 times a day for better BP control continue IV Lasix. Anticipated cardiac cath in the morning discussed in detail about fluid and salt restriction - Patient Problems (1) Abnormal liver function test Current Visit: Yes Status: Acute (2) Acute HFrEF (heart failure with reduced ejection fraction) Current Visit: Yes Status: Acute (3) Acute kidney injury Current Visit: Yes Status: Acute (4) Cardiomyopathy Current Visit: Yes Status: Acute Qualifiers: Cardiomyopathy type: alcoholic Qualified Code(s): I42.6 - Alcoholic cardiomyopathy (5) New onset of congestive heart failure Current Visit: Yes Status: Acute (6) Severe obesity Current Visit: Yes Status: Acute (7) HLD (hyperlipidemia) Current Visit: Yes Status: Chronic Qualifiers: Hyperlipidemia type: mixed hyperlipidemia Qualified Code(s): E78.2 - Mixed hyperlipidemia (8) HTN (hypertension) Current Visit: Yes Status: Chronic Qualifiers: Hypertension type: primary hypertension Qualified Code(s): I10 - Essential (primary) hypertension Subjective Date of service: 07/23/21 Principal diagnosis: Acute HFrEF Interval history: sob is better Objective Vital Signs Temp Pulse Pulse Resp BP BP Pulse Ox 07/23/21 11:11 81 07/23/21 10:00 98 07/23/21 08:00 97.6 F 81 18 143/99 95 07/23/21 05:14 80 160/107 07/23/21 04:14 97.7 F 80 20 160/107 98 07/22/21 23:29 98.4 F 85 20 134/90 96 07/22/21 22:00 96 07/22/21 21:50 86 144/100 07/22/21 20:09 97.8 F 88 20 149/110 98 07/22/21 16:25 97.9 F 86 18 144/100 99 07/22/21 12:19 85 85 98 - Physical Examination General: No Apparent Distress HEENT: Positive: EOMI, Normocephaly Neck: Positive: neck supple, trachea midline Cardiac: Positive: Reg Rate and Rhythm Lungs: Positive: clear to auscultation Neuro: Positive: Grossly Intact Abdomen: Positive: Soft. Negative: Tender Skin: Negative: Rash Musculoskeletal: No Pain Extremities: Present: lower extr. pulses, +1 Edema, warm - Labs and Meds CBC 07/23/21 Range/Units 06:02 WBC 4.2 L (4.5-11.0) K/mm3 RBC 4.79 (3.65-5.03) M/mm3 Hgb 14.8 (11.8-15.2) gm/dl Hct 43.3 (35.5-45.6) % Plt Count 218 (140-440) K/mm3 Comprehensive Metabolic Panel 07/23/21 Range/Units 06:02 Sodium 140 (137-145) mmol/L Potassium 3.5 L (3.6-5.0) mmol/L Chloride 98.6 (98-107) mmol/L Carbon Dioxide 28 (22-30) mmol/L BUN 14 (9-20) mg/dL Creatinine 1.3 (0.8-1.3) mg/dL Glucose 108 H (75-100) mg/dL Calcium 8.6 (8.4-10.2) mg/dL - Imaging and Cardiology EKG: report reviewed, image reviewed Echo: report reviewed - Telemetry EKG Rhythm: Sinus Rhythm - EKG Sinus rhythms and dysrhythmias: sinus rhythm
[2021-07-23] MEDS: NEOMY 3.5 MG/BACIT 400 UNITS/POLY B 5000 UNITS/GM OINT PACKET TP SCH ×2 (14:40→21:58)
[2021-07-23] MEDS: hydrALAZINE 100 MG TAB PO SCH ×2 (14:40→21:58)
[2021-07-24 05:54] LABS: Basophils % (Auto) 1.2 % (0.0-1.8); Eosinophils # (Auto) 0.1 K/mm3 (0.0-0.4); Eosinophils % (Auto) 2.6 % (0.0-4.3); Lymphocytes # (Auto) 1.5 K/mm3 (1.2-5.4); Lymphocytes % (Auto) 37.5 % (13.4-35.0); Mean Corpuscular HGB Conc 34 % (32-34); Mean Corpuscular Volume 91 fl (84-94); Monocytes # (Auto) 0.6 K/mm3 (0.0-0.8); Monocytes % (Auto) 14.5 % (0.0-7.3); Platelet Count 212 K/mm3 (140-440); Red Blood Count 4.84 M/mm3 (3.65-5.03); Red Cell Distribution Width 15.2 % (13.2-15.2)
[2021-07-24 05:59] LABS: INR 1.04 (0.87-1.13)
[2021-07-24 06:00] LABS: Partial Thromboplastin Time 27.5 Sec. (24.2-36.6)
[2021-07-24 06:02] LABS: BUN/Creatinine Ratio 11; Blood Urea Nitrogen 13 mg/dL (9-20); Calcium 8.6 mg/dL (8.4-10.2); Hemolysis Index 8
[2021-07-24] MEDS: hydrALAZINE 100 MG TAB PO SCH ×3 (06:25→17:37)
[2021-07-24] MEDS ORDERED: SODIUM CHLORIDE 0.9% 500 ML 500 ML IV SCH (08:00)
[2021-07-24] MEDS ORDERED: fentaNYL 100 MCG/2 ML INJ ONE (08:15)
[2021-07-24] MEDS ORDERED: HEPARIN/NS 5000 UNIT/500ML 0 ML IR ONE (08:15)
[2021-07-24] MEDS ORDERED: HEPARIN 10,000 UNITS/10 ML VIAL ONE (08:15)
[2021-07-24] MEDS ORDERED: MIDAZOLAM 2 MG/2 ML INJ ONE (08:15)
[2021-07-24] MEDS ORDERED: NITROGLYCERIN SYRINGE 0 ML ONE (08:16)
[2021-07-24] MEDS ORDERED: LIDOCAINE (2%) 20 MG/1 ML VIAL 20 ML MDV INFILTRATI ONE (08:16)
[2021-07-24] MEDS ORDERED: VERAPAMIL 5 MG/2 ML INJ ONE (08:16)
[2021-07-24] MEDS ORDERED: ASPIRIN EC 325 MG TAB PO SCH (08:30)
[2021-07-24] MEDS ORDERED: POTASSIUM CHLORIDE ER 20 MEQ TAB PO NR (10:30)
[2021-07-24] MEDS: NEOMY 3.5 MG/BACIT 400 UNITS/POLY B 5000 UNITS/GM OINT PACKET TP SCH ×2 (11:15→13:55)
[2021-07-24] MEDS: VALSARTAN 160MG TAB PO SCH (11:21)
[2021-07-24] MEDS ORDERED: HEPARIN/NS 5000 UNIT/500ML 1,000 ML IR ONE (12:15)
[2021-07-24] MEDS ORDERED: NITROGLYCERIN SYRINGE 3 ML ONE (12:16)
[2021-07-24] MEDS: fentaNYL 100 MCG/2 ML INJ ONE ×2 (12:40→12:55)
[2021-07-24] MEDS: LIDOCAINE (2%) 20 MG/1 ML VIAL 20 ML MDV INFILTRATI ONE ×2 (12:41→12:58)
[2021-07-24] MEDS: MIDAZOLAM 2 MG/2 ML INJ ONE ×2 (12:41→12:55)
[2021-07-24] MEDS: HEPARIN 10,000 UNITS/10 ML VIAL ONE ×2 (12:42→12:59)
[2021-07-24] MEDS: VERAPAMIL 5 MG/2 ML INJ ONE ×2 (12:43→12:59)
[2021-07-24] MEDS ORDERED: METOPROLOL TARTRATE 5 MG/5 ML INJ IV ONE (13:01)
--- NOTE | 2021-07-24 13:38 | Cardiac Catherization Report ---
DATE OF SERVICE: 07/24/2021 CLINICAL INFORMATION: This is a 46-year-old man with morbid obesity, hypertension, acute systolic heart failure and EF of 20-25% on echocardiogram is here for left heart catheterization for ischemic evaluation cardiomyopathy. Procedure was done with moderate sedation started at 1255, finished at 1310, that is 15 minutes of moderate sedation. DESCRIPTION OF PROCEDURE: Procedure was done via the right radial artery, sterile technique and local anesthesia. A 6-Palestinian radial sheath inserted. Left system engaged with JL3.5 catheter. Left main is large and patent, and bifurcates to large LAD that was patent. Diagonal 1, medium caliber, was patent. Circumflex, large caliber vessel that was patent, and goes a large OM1 that is patent. RCA engaged with JR4 is a large, dominant vessel, patent from proximally and distally. PDA and PLB are large caliber vessels patent. LV gram done in SENEGALESE view shows mild LV dysfunction, EF 40-45% with LVEDP at 35 mmHg, LV is 153, aortic is 153/109. No gradient across the aortic valve on pullback. A 5-Palestinian catheter was taken over a guidewire. A 6-Palestinian radial sheath discontinued. Radial band applied. No hematoma, no bleeding. SUMMARY: Normal coronaries, mild left ventricular dysfunction. Nonischemic cardiomyopathy with elevated left end diastolic pressure. Continue blood pressure medicine and diuretics and discussed with the patient in detail about the case. TID: [id number] RECEIPT: [id number] VRM/EKT
--- NOTE | 2021-07-24 13:46 | Discharge Summary ---
Providers - Providers Date of Admission: 07/21/21 09:02 Attending physician: CATHRYN AMYES MD 07/19/21 09:54 Consult to Physician [CONS] Routine Comment: Consulting Provider: CAT ESPARZA Physician Instructions: Reason For Exam: CHF 07/19/21 09:56 Consult to Dietitian/Nutrition [CONS] Routine Physician Instructions: Reason For Exam: Reason for Consult: Diet education 07/19/21 09:58 Consult to Physician [CONS] Routine Comment: Consulting Provider: SOLO WEBSTER Physician Instructions: Reason For Exam: KOLTON Primary care physician: [employer] Hospitalization Reason for admission: Shortness of breath Condition: Stable Hospital course: Patient is a 46-year-old male with past medical history of GERD recently d iagnosed CHF hypertension morbid obesity with BMI of 47.3. The patient reports that he has in the last 2 months quit alcohol use which he drank heavily in the past but never required hospitalization or had any seizure-like activity. In the last 2 months also he has noted worsening shortness of breath with exertion. 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 He presents to the ED with worsening shortness of breath he was recently seen by a physician Dr. Jered Mccloud in [facility] where and was started on medications listed below. He denies any nausea vomiting or diarrhea he denies any fever. He reports that he was vaccinated against COVID-19 with 2 doses 2 months ago. 1. New onset acute systolic CHF: Patient was treated with diuresis using Lasix. Counseling was provided to the patient on need for weight loss. Dietary restrictions was discussed in detail with the patient also 2. KOLTON: Suspect vasomotor nephropathy with recent use furosemide, patient will need supervised monitor diuresis, obtain nephrology eval, further work up per them 3. Abnormal liver function: tests suspect fatty liver disease versus alcohol liver disease, patient recently stopped drinking alcohol. We will continue to monitor closely. Monitor for withdrawal symptoms 4. Hyperkalemia: We will give a dose of Kayexalate. Patient was on potassium outpatient we will discontinue this. Anticipate that this will also correct and may be become hypokalemic with Lasix but will monitor closely. 5. Hyponatremia: Continue to monitor 6. severe obesity: BMI 47, patient is currently 319 pounds. He explained that he weighed 185 pounds in high school. Provided education regarding lifestyle modification. 7. Hypertension: Patient was started on Diovan and hydralazine 07/21/21. I will increase hydralazine to 50 mg twice daily today. His blood pressure still elevated especially diastolic. Extensive counseling provided to the patient he verbalized understanding 8. Monitor for skin blister left lower extremity. We will no aspirin ointment. Continue inpatient care for further diuresis. Monitor electrolytes and replace as needed anticipate ischemic work-up inpatient which includes a cardiac catheterization Abnormal liver function test Cardiomyopathy HLD (hyperlipidemia) Disposition: HOME / SELF CARE / HOMELESS Final Discharge Diagnosis (Prints w/discharge instructions): Acute congestive heart failure systolic Time spent for discharge: 35-minute Core Measure Documentation - Palliative Care Palliative Care/ Comfort Measures: Not Applicable - Core Measures Any of the following diagnoses?: heart failure - Heart Failure Discharge Requirements LULÚ/ARB for LVSD if EF <40%: Yes Beta gay at discharge: Yes Exam - Physical Exam Narrative exam: VITAL SIGNS: Reviewed. GENERAL: The patient appears normally developed, morbidly obese, no distress vital signs as documented. HEAD: No signs of head trauma. EYES: Pupils are equal. Extraocular motions intact. EARS: Hearing grossly intact. MOUTH: Oropharynx is normal. NECK: No adenopathy, no JVD. CHEST: Chest with diminished breath sounds bilaterally. No wheezes, rales, or rhonchi. CARDIAC: Regular rate and rhythm. S1 and S2, without murmurs, gallops, or rubs. VASCULAR: No Edema. Peripheral pulses normal and equal in all extremities. ABDOMEN: Large pannus soft, non tender and non distended. No rebound or guarding, and no masses palpated. Bowel Sounds normal. MUSCULOSKELETAL: Good range of motion of all major joints. Extremities without clubbing, cyanosis. +2 pitting edema. With mild discoloration and blister noted NEUROLOGIC EXAM: Alert and oriented x 3 No focal sensory or strength deficits. Speech normal. Follows commands. PSYCHIATRIC: Mood normal. SKIN: detail exam as documented in skin assessment - Constitutional Vitals: Temp Pulse Resp BP Pulse Ox 97.9 F 78 18 158/111 98 07/24/21 04:15 07/24/21 04:15 07/24/21 10:00 07/24/21 11:21 07/24/21 10:00 Plan Activity: advance as tolerated, fall precautions Diet: low salt Special Instructions: restrict fluid intake to (1200cc/day) Follow up with: PRIMARY CAREMD [Primary Care Provider] - 7 Days MARY ESCALONA MD [Staff Physician] - 7 Days Prescriptions: Spironolactone [Aldactone] 25 mg PO QDAY #30 tablet hydrALAZINE [Apresoline TAB] 100 mg PO Q8HR #90 tab Valsartan [Diovan] 160 mg PO BID #60 tablet ISOSORBIDE MONOnitrate [Imdur ER] 30 mg PO QDAY #30 tablet Potassium Chloride [K-Dur] 20 meq PO BID #30 tab Furosemide [Lasix TAB] 40 mg PO 0600,1800 #60 tablet
--- NOTE | 2021-07-24 13:53 | Progress Note ---
Assessment and Plan Patient is 46y/o male with a PMHx of HTN and obesity HFrEF HTN * EKG shows sinus rhythm 85 with no acute ischemic changes, trops neg, no chest pain * BNP noted to be elevated 7537 at admission, CXR on admission shows pulmonary congestion, patient endorses orthopnea SOB, and has BLE +2-3. * Patient currently on metoprolol 100mg BID, hydralizine 100mg TID, Imdur 30mg QD, and valsartan 160mg PO BID * Echo 07/19/2021- EF 15-20%, restrictive physiology, LV mildly dilated, mild LVH, RV dilated, reduced RVSF, LA mildly dilated, RA dilated, mild TR, RVSP 28mmHg [place] * Nephrology following Hyperkalemia(resolved) * Management per primary team HLD * No statin at this time in the setting of elevated LFTs Elevated LFTs * Pt reports h/o EtOH abuse Plan: Patient cardiac cath today showed normal coronary arteries. Patient is stable and may be discharged from a cardiac perspective Patient has a BMP on 08/03/2021 at 9:30am at our [place] location Patient has a follow up appointment with Dr. Grande, [facility], on 08/14/2021 at 11am at our [place] location. Patient seen in conjunction with Dr. Gordillo who agrees with this plan of care. Will continue to follow - Patient Problems (1) HTN (hypertension) Current Visit: Yes Status: Chronic Qualifiers: Hypertension type: primary hypertension Qualified Code(s): I10 - Essential (primary) hypertension (2) Abnormal liver function test Current Visit: Yes Status: Acute (3) Acute kidney injury Current Visit: Yes Status: Acute (4) New onset of congestive heart failure Current Visit: Yes Status: Acute (5) Severe obesity Current Visit: Yes Status: Acute Subjective Date of service: 07/24/21 Principal diagnosis: Acute HFrEF Interval history: Patient for cardiac cath today. Sinus 80s on monitor Objective Vital Signs Temp Pulse Resp BP Pulse Ox 07/24/21 11:21 158/111 07/24/21 10:00 18 98 07/24/21 04:15 97.9 F 78 18 146/95 98 07/23/21 23:11 98.1 F 75 20 124/74 96 07/23/21 22:00 97 10/03/21 21:58 90 07/23/21 20:35 98.4 F 87 19 138/98 96 07/23/21 16:27 98.7 F 81 18 130/91 96 - Physical Examination General: No Apparent Distress HEENT: Positive: EOMI, Normocephaly Neck: Positive: neck supple, trachea midline Cardiac: Positive: Reg Rate and Rhythm Lungs: Positive: Normal Breath Sounds Neuro: Positive: Grossly Intact Abdomen: Positive: Soft. Negative: Tender Skin: Negative: Rash Musculoskeletal: No Pain Extremities: Present: lower extr. pulses, +1 Edema, warm - Labs and Meds Coagulation 07/24/21 Range/Units 05:29 PT 14.1 (12.2-14.9) Sec. INR 1.04 (0.87-1.13) APTT 27.5 (24.2-36.6) Sec. CBC 07/24/21 Range/Units 05:29 WBC 4.0 L (4.5-11.0) K/mm3 RBC 4.84 (3.65-5.03) M/mm3 Hgb 15.0 (11.8-15.2) gm/dl Hct 44.0 (35.5-45.6) % Plt Count 212 (140-440) K/mm3 Lymph # (Auto) 1.5 (1.2-5.4) K/mm3 [place] # (Auto) 0.6 (0.0-0.8) K/mm3 Eos # (Auto) 0.1 (0.0-0.4) K/mm3 Baso # (Auto) 0.0 (0.0-0.1) K/mm3 Comprehensive Metabolic Panel 07/24/21 Range/Units 05:29 Sodium 137 (137-145) mmol/L Potassium 3.4 L (3.6-5.0) mmol/L Chloride 98.1 (98-107) mmol/L Carbon Dioxide 26 (22-30) mmol/L BUN 13 (9-20) mg/dL Creatinine 1.2 (0.8-1.3) mg/dL Glucose 107 H (75-100) mg/dL Calcium 8.6 (8.4-10.2) mg/dL - Imaging and Cardiology EKG: report reviewed, image reviewed Echo: report reviewed Cardiac cath: report reviewed - Telemetry EKG Rhythm: Sinus Rhythm - EKG Sinus rhythms and dysrhythmias: sinus rhythm
[2021-07-24] MEDS: PANTOPRAZOLE 40 MG TAB PO SCH (13:55)
--- NOTE | 2021-07-24 14:16 | Electrocardiograph Report ---
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
[2021-07-24] MEDS: METOPROLOL TARTRATE 100 MG TAB PO SCH (14:46)
[2021-07-24 14:47] VITALS: BP 138/85
[2021-07-24] MEDS ORDERED: FUROSEMIDE 40 MG TAB PO SCH (18:00)
[2021-07-25] MEDS ORDERED: SPIRONOLACTONE 25 MG TAB PO SCH (10:00)
--- NOTE | 2021-07-25 11:03 | Electrocardiograph Report ---
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
== END 2021-07-24 18:30 | disposition home or self-care (01) | DRG 286 ==
LOC: ED 05:07 → 4A 09:53 → OBSVTOIN 07-21 09:02
PROVIDERS: ADMIT Internal Medicine; ATTEND Internal Medicine
PROC: 4A023N7 Measurement of Cardiac Sampling and Pressure, Left Heart, Percutaneous Approach (ICD-10-PCS; principal; 2021-07-24)
PROC: B2111ZZ Fluoroscopy of Multiple Coronary Arteries using Low Osmolar Contrast (ICD-10-PCS; 2021-07-24)
PROC: B2151ZZ Fluoroscopy of Left Heart using Low Osmolar Contrast (ICD-10-PCS; 2021-07-24)
DX: I11.0 Hypertensive heart disease with heart failure (principal); I50.21 Acute systolic (congestive) heart failure; N17.0 Acute kidney failure with tubular necrosis; E87.1 Hypo-osmolality and hyponatremia; Z68.42 Body mass index [BMI] 45.0-49.9, adult; E66.01 Morbid (severe) obesity due to excess calories; E78.5 Hyperlipidemia, unspecified; E87.5 Hyperkalemia; I42.9 Cardiomyopathy, unspecified; K21.9 Gastro-esophageal reflux disease without esophagitis; Z20.822 Contact with and (suspected) exposure to COVID-19
CPT/HCPCS: 36415; 71045; 76770; 80048; 80053; 80061; 81001; 82570; 82962; 83735; 83880; 84132; 84156; 84300; 84484; 85007; 85025; 85027; 85610; 85730; 86850; 86900; 86901; 93005; 93306; 93458; G0378; A6250; C1894; J0360; J1644; J1815; J1940; J2250; J3010; J3475; Q9967